=== PATIENT | male | born 1945 | race Caucasian/White ===

== ENCOUNTER 2018-12-11 07:35 | Inpatient (IN) | payer MEDICARE ==
[~2018-12-11] VITALS: Ht 175.3 cm; Wt 58.1 kg
[~2018-12-11 07:35] MED LIST: ALBIPROI; ALBU.083IS IH; ALBU90OI; ALBU90OI INH; ALBUIS; AMMO140TC TOP; ASPI325; ASPI325 PO; ASPI81CH PO; ATOR10; ATOR40TA PO; AZIT500 PO; Acidophilus La100 GM PO; BENZ100A; BUDE200IP IH; Budesonide0.5 MG/2 M INH; CODLIVC PO; Cardizem CD 24240 MG PO; DIAZ5 PO; DIGO.125 PO; DILT120ERA PO; DOXY100 PO; ERGO400 PO; FOLI1 PO; FORM12IH IH; GUAI600T33 PO; HYDACE5 PO; IPRAIS NEB; IPRAOI INH; LEVFLO500 PO; LORA.5 PO; LORA10 PO; METO25ER PO; METO50ER PO; MOME220I IH; MOMENI; Multiple Vitam1 EAC1 PO; NIAC250ER PO; NIAC500; NIAC500 PO; PRED10; PRED10 PO; PRED20 PO; PYRI100 PO; ROSU10TA PO; TAMS.4ER; TAMS.4ER PO; TERA5 PO; TIOT18; TIOT18 IH; UBID100 PO; Ventolin Soln3 ML INH; Vitamin C100 M1 PO; [UNRECOGNIZED DRUG - REMARK]
[2018-12-11 08:09] LABS: BASOPHILS ABSOLUTE AUTO 0.01 K/mm3 (0.00-0.23); BASOPHILS PERCENT AUTO 0 % (0-2); EOSINOPHILS ABSOLUTE AUTO 0.02 K/mm3 (0.00-0.68); EOSINOPHILS PERCENT AUTO 0 % (0-6); Hematocrit 40.6 % (37.0-53.0); Hemoglobin 13.5 g/dL (13.5-17.5); IMMATURE GRAN ABSOLUTE AUTO 0.05 K/mm3 (0.00-0.10); IMMATURE GRAN PERCENT AUTO 0 % (0-1); LYMPHOCYTES ABSOLUTE AUTO 1.76 K/mm3 (0.84-5.20); LYMPHOCYTES PERCENT AUTO 15 % (21-46); MONOCYTES ABSOLUTE AUTO 0.89 K/mm3 (0.16-1.47); MONOCYTES PERCENT AUTO 7 % (4-13); Mean Corpuscular HGB 33.1 pg (26.0-34.0); Mean Corpuscular HGB Conc 33.3 g/dL (31.5-36.5); Mean Corpuscular Volume 100 fL (80-100); NEUTROPHILS ABSOLUTE AUTO 9.37 K/mm3 (1.96-9.15); NEUTROPHILS PERCENT AUTO 77 % (41-73); Platelet Count 234 K/mm3 (150-400); RDW Standard Deviation 48.1 fL (35.1-46.3); Red Blood Cell Count 4.08 M/mm3 (4.30-5.90)
[2018-12-11 08:09] LABS: PCO2 Arterial 47.2 mmHg (35-45); PO2 Arterial 67.4 mmHg (80-100); pH Blood Arterial 7.46 (7.35-7.45)
[2018-12-11 08:33] LABS: Alanine Aminotransfer (ALT/SGP 32 U/L (12-78); Albumin, Blood 3.3 g/dL (3.4-5.0); Alk Phos 50 U/L (50-136); Anion Gap 6 mmol/L (6-16); Aspartate Aminotrans (AST/SGOT 33 U/L (12-37); Bilirubin, Total 0.4 mg/dL (0.1-1.0); Blood Urea Nitrogen 14 mg/dL (8-24); Bun/Creatinine Ratio 24.1 (12.0-20.0); CO2, Blood 32 mmol/L (21-32); Calcium, Blood 8.6 mg/dL (8.5-10.1); Chloride, Blood 97 mmol/L (98-108); Creatinine, Blood 0.58 mg/dL (0.60-1.20); Globulin, Blood 3.3 g/dL (2.2-4.0); Glomerular Filtration Rate >60 (60-); Glucose, Blood 153 mg/dL (70-99); Potassium, Blood 3.7 mmol/L (3.5-5.5); Sodium, Blood 135 mmol/L (136-145); Total Protein, Blood 6.6 g/dL (6.4-8.2); Troponin I <0.015 ng/mL (0.000-0.040)
[2018-12-11] MEDS ORDERED: ALBU3IS (09:04)
[2018-12-11 09:09] LABS: Influenza A Negative (NEGATIVE); Influenza B Negative (NEGATIVE)
[2018-12-11] MEDS ORDERED: LISI20 PO (09:26)
[2018-12-11] MEDS ORDERED: PRED5 (09:26)
[2018-12-11] MEDS ORDERED: GUAI600T33 PO (09:26)
[2018-12-11] MEDS ORDERED: ASCO500 PO (09:33)
[2018-12-11] MEDS ORDERED: Cod Liver Oil1 EAC2 PO (09:33)
[2018-12-11] MEDS ORDERED: CHOL10002 PO (09:33)
[2018-12-11] MEDS ORDERED: ASPI81CH PO (09:33)
[2018-12-11] MEDS ORDERED: UBID10 PO (09:34)
[2018-12-11] MEDS ORDERED: PYRI100 PO (09:35)
[2018-12-11] MEDS ORDERED: Acidophilus La100 GM (09:35)
[2018-12-11] MEDS ORDERED: FOLI400 PO (09:35)
[2018-12-11] MEDS ORDERED: Hair, Skin & N1 EACH PO (09:35)
--- NOTE | 2018-12-11 18:47 | NUR ---
END OF SHIFT; PT ARRIVED TO PCU LATE THIS AFTERNOON FROM ER. HE IS AO X 4. PT ON 2 LITERS O2 ON ARRIVAL TO PCU. LUNGS ARE COARSE THROUGHOUT. EXPIRATORY AND INSPIRATORY WHEEZES ARE NOTED. PT HAS BIPAP IN ROOM IF NEEDED. HE APPEARS VERY SHAKY AND HAS TROUBLE HOLDING CUP OF WATER. PER PATEINT HE IS SINGLE AND LIVES ALONE. SKIIN IS PINK DRY AND INTACT. HE HAS SEVERE DYSPNEA WITH MINIMAL EXERTION. PURSED LIP BREATHING IS NOTED. WILL CONTINUE TO MONITOR THIS PATIENT UNTIL REPORT AND HAND OFF TO NOC SHIFT RN.
--- NOTE | 2018-12-12 06:34 | NUR ---
SHIFT SUMMARY PT RESTING IN ROOM COMFORTABLY. PT HAD NO ACUTE CHANGES IN STATUS T/O SHIFT. PT SLEPT WELL AND HAD NO COMPLAINTS OF PAIN. SOME DYSPNEA W/ MOVEMENT TO BSC. PT ABLE TO TOLERATE MOVE W/ SBA. RESP EVEN UNLABORED ON 2L O2 VIA NC SATS >90%. PT DID NOT NEED CPAP DURING NIGHT. CALL LIGHT IN REACH. CALLS APPROPRIATLY
--- NOTE | 2018-12-12 19:24 | NUR ---
END OF SHIFT SUMMARY; NO ACUTE CHANGES IN CONDITION NOTED IN PATIENT CONDITION TODAY. PT RESTED COMFORTABLY IN BED MOST OF DAY. CALLING FOR BREATHING TREATMENTS NECESSARY. PT IS PROVIDED WITH INCENTIVE SPIROMETER BY RT.
--- NOTE | 2018-12-13 06:29 | NUR ---
SHIFT SUMMARY- PT HAS REMAINED AOX4 THROUGHOUT SHIFT. VSS. PLEASANT AND COOPERATIVE WITH CARE. LUNG SOUNDS HAVE REMAINED DIMINISHED AND TIGHT THROUGHOUT SHIFT. PT WITH WHEEZY PRODUCTIVE COUGH OF THICK, YELLOW SPUTUM. HEART RHYTHM CONTINUES TO CONVERT BETWEEN ATRIAL FIBRILLATION AND NORMAL SINUS RHYTHM- PT REPORTS THAT THIS IS NORMAL FOR HIM, RATE HAS BEEN CONTROLLED UNLESS PT IS COUGHING. O2 SATS HAVE REMAINED >90% ON 3L VIA NASAL CANNULA THROUGHOUT THE NIGHT. PT HAS REMAINED ON BEDREST WITH BSC USE THROUGHOUT SHIFT, AMBULATES WITH STANDBY ASSIST AND MINIMAL DIFFICULTY. PT REQUIRES ENCOURAGEMENT TO UTILIZE PURSED LIP BREATHING TECHNIQUES WHEN FEELING DYSPNEIC. NO OTHER CHANGES FROM INITIAL ASSESSMENT. WILL CONTINUE TO MONITOR AND REPORT TO ONCOMING SHIFT RN. BED IN LOW POSITION, CALL LIGHT IN REACH.
--- NOTE | 2018-12-13 16:56 | NUR ---
SHIFT SUMMARY PT RESTING IN BED THROUGHOUT THE DAY. VSS. ALERT AND ORIENTED X3. C/O NECK PAIN 12/26 THIS AFTERNOON, MEDICATED WITH PRN PAIN MEDS. LUNG SOUNDS TIGHT THROUGHOUT. PT FLIPPING BETWEEN AFIB AND NSR RATE 70s-130s. UP TO BEDSIDE COMMODE WITH 1 PERSON ASSIST. NON PRODUCTIVE COUGH, BUT WHEN HE COUGHS HIS HEART RATE ELEVATES AND HE BECOMES MORE ANXIOUS. VOIDING SMALL AMOUNTS OF CLEAR YELLOW URINE FREQUENTLY. WILL CONTINUE TO MONITOR.
--- NOTE | 2018-12-14 06:02 | NUR ---
SHIFT SUMMARY- PT HAS REMAINED AOX4 THROUGHOUT SHIFT. VSS. COOPERATIVE WITH CARE. LUNG SOUNDS HAVE REMAINED TIGHT THROUGHOUT THE NIGHT, BUT HAVE MORE AIR EXCHANGE IS HEARD FROM PREVIOUS DAY- NO AUDIBLE WHEEZES HEARD. O2 SATS HAVE REMAINED >90% ON 2L VIA NASAL CANNULA, PT REPORTS THAT WORK OF BREATHING HAS DECREASED UNLESS HE IS AMBULATING. PT CONTINUES TO COUGH SMALL AMOUNTS OF THICK, YELLOW SPUTUM- PT CONTINUES TO FEEL INCREASINGLY ANXIOUS WITH COUGHING EPISODES. AMBULATES WITH ONE PERSON ASSIST TO BEDSIDE COMMODE AND USES URINAL AT BEDSIDE INDEPENDENTLY. NO OTHER CHANGES FROM INITIAL ASSESSMENT. WILL CONTINUE TO MONITOR AND REPORT TO ONCOMING SHIFT RN. BED IN LOW POSITION, CALL LIGHT IN REACH.
--- NOTE | 2018-12-14 16:04 | NUR ---
SHIFT SUMMARY PT RESTING IN BED THROUGHOUT THE DAY. VSS. ALERT AND ORIENTED X3. LUNG SOUNDS EXPIRATORY WHEEZES / COARSE THROUGHOUT, DIMINISHED BASES. LUNGS MOVING MORE AIR TODAY THAN YESTERDAY. NSR RATE 79 PER TELE. DENIES PAIN THROUGHOUT THE DAY. PT STABLE TO TRANSFER TO MEDICAL FLOOR. REPORT CALLED TO [place] MOHR ON MEDICAL FLOOR. PT TRANSFERED VIA WHEELCHAIR TO MEDICAL FLOOR WITH BELONGINGS.
--- NOTE | 2018-12-14 16:58 | NUR ---
RECEIVED FROM [facility] BY W/C AT 1625. HE IS SOB BUT TRANSFERRED HIMSELF FROM THE CHAIR TO THE BED. O2 3L FOR TRANSPORT. NOW IS DOWN TO 2L. WILL RESUME CONTINUOUS BIOX. HIS BREATHING SETTLED DOWN AND HE IS COMFORTABLE IN BED WITH THE TV ON. SPUTUM SAMPLE WAS SENT EARLIER TODAY.
--- NOTE | 2018-12-15 05:10 | NUR ---
SHIFT SUMMARY THE PATIENT PRESENTED THIS SHIFT WITH VERY COARSE, WHEEZEY LUNG SOUNDS, A&O X4 AND VITALS WNL. THE PATIENT HAS HAD SEVERAL BREATHING TREATMENTS THIS SHIFT. THE PATIENT REQUESTED A SOFTER BED AND A FOAM MATTRESS PAD WAS PROVIDED FOR HIM. THE PATIENT SLEPT OFF AND ON DURNING THE SHIFT. THE PATIENT IS SLEEPING AT THIS TIME, WILLCONTINUE TO MONITOR.
--- NOTE | 2018-12-15 18:51 | NUR ---
SHIFT SUMMARY PT USING URINAL WITH NO PROBLEM. REPORTS RESP MUCH IMPROVED. CONTINUES TO COUGH UP SPUTUM. QUIET IN ROOM THROUGH DAY WATCHING TV.
--- NOTE | 2018-12-16 03:59 | NUR ---
SHIFT SUMMARY PT HAS SLEPT OFF AND ON THROUGHOUT THE NIGHT. PT HAD NO COMPLAINTS OR ACUTE ISSUES NOTED. PT TX BY RT PER EMAR WITH GOOD EFFECT. PT CONTINUES TO COUGH WITH PRODUCTION. PT CURRENTLY WATCHING TV QUIETLY AND BREATHING EASY. CALL LIGHT IN REACH.
[2018-12-16] MEDS ORDERED: ALBU3IS INH (13:14)
[2018-12-16] MEDS ORDERED: PRED10 (13:17)
[2018-12-16] MEDS ORDERED: SACC250C PO (13:17)
[2018-12-16] MEDS ORDERED: LEVO750 PO (13:17)
[2018-12-16] MEDS ORDERED: DILT30 PO (13:19)
--- NOTE | 2018-12-16 15:30 | NUR ---
DISCHARGE INSTRUCTIONS COMPLETED AND DISCUSSED WITH PT EXPRESSING UNDERSTANDING. COUSIN HERE TO PICK PT UP. TO [facility] VIA W/C.
--- NOTE | 2018-12-16 18:04 | NUR ---
Mr. Pratt tells me he really doesn't feel much better and appeared to be having trouble talking and breathing. This bothers him. He is not buddhism, but appeared to enjoy emotional affirmation. I encouraged him to express his concerns to his physician. Mr. Pratt said he did not feel well enough to go home. Informed RN.
== END 2018-12-16 15:31 | disposition home or self-care (01) | DRG 189 ==
LOC: ER 07:35 → PCU 10:07 → MEDS 12-14 16:45 → ENPENDDIS 12-16 10:30 → MEDS 12-16 15:31
PROVIDERS: Physician Assistant; ADMIT Hospitalist
DX: J96.21 Acute and chronic respiratory failure with hypoxia (principal); J44.1 Chronic obstructive pulmonary disease with (acute) exacerbation; I10 Essential (primary) hypertension; I48.91 Unspecified atrial fibrillation; E78.5 Hyperlipidemia, unspecified; N40.0 Benign prostatic hyperplasia without lower urinary tract symptoms; Z88.8 Allergy status to other drugs, medicaments and biological substances; Z88.5 Allergy status to narcotic agent; Z91.018 Allergy to other foods; Z99.81 Dependence on supplemental oxygen; Z79.82 Long term (current) use of aspirin; Z79.899 Other long term (current) drug therapy; Z87.891 Personal history of nicotine dependence
CPT/HCPCS: 36600; 71046; 80053; 82803; 83880; 84484; 85025; 87070; 87077; 87186; 87205; 87804; 93005; 93010; 94640; 94660; 94760; 94762; 96374; 99285-25; J1650; J2930

== ENCOUNTER 2018-12-17 08:44 | Inpatient (IN) | payer MEDICARE ==
[~2018-12-17] VITALS: Ht 167.6 cm; Wt 70.3 kg
[~2018-12-17 08:44] MED LIST changes: +ALBU3IS; +ALBU3IS INH; +ASCO500 PO; +Acidophilus La100 GM; +CHOL10002 PO; +Cod Liver Oil1 EAC2 PO; +DILT30 PO; +FOLI400 PO; +Hair, Skin & N1 EACH PO; +LEVO750 PO; +LISI20 PO; +PRED5; +SACC250C PO; +UBID10 PO
[2018-12-17 09:18] LABS: BASOPHILS ABSOLUTE AUTO 0.02 K/mm3 (0.00-0.23); BASOPHILS PERCENT AUTO 0 % (0-2); EOSINOPHILS ABSOLUTE AUTO 0.02 K/mm3 (0.00-0.68); EOSINOPHILS PERCENT AUTO 0 % (0-6); Hematocrit 45.9 % (37.0-53.0); Hemoglobin 15.6 g/dL (13.5-17.5); IMMATURE GRAN ABSOLUTE AUTO 0.15 K/mm3 (0.00-0.10); IMMATURE GRAN PERCENT AUTO 1 % (0-1); LYMPHOCYTES ABSOLUTE AUTO 1.79 K/mm3 (0.84-5.20); LYMPHOCYTES PERCENT AUTO 8 % (21-46); MONOCYTES ABSOLUTE AUTO 1.93 K/mm3 (0.16-1.47); MONOCYTES PERCENT AUTO 9 % (4-13); Mean Corpuscular HGB 32.6 pg (26.0-34.0); Mean Platelet Volume 9.2 fL (9.1-12.4); NEUTROPHILS ABSOLUTE AUTO 17.72 K/mm3 (1.96-9.15); NEUTROPHILS PERCENT AUTO 82 % (41-73); Platelet Count 317 K/mm3 (150-400); RDW Coefficient Variation 12.3 % (11.7-14.2); RDW Standard Deviation 44.3 fL (35.1-46.3); Red Blood Cell Count 4.78 M/mm3 (4.30-5.90); White Blood Cell Count 21.63 K/mm3 (4.00-11.30)
[2018-12-17 09:23] LABS: Mean Corpuscular Volume 96 fL (80-100)
[2018-12-17 09:58] LABS: Alanine Aminotransfer (ALT/SGP 56 U/L (12-78); Albumin/Globulin Ratio 0.9 (0.8-1.8); Alk Phos 62 U/L (50-136); Anion Gap 6 mmol/L (6-16); Aspartate Aminotrans (AST/SGOT 43 U/L (12-37); Bilirubin, Total 0.5 mg/dL (0.1-1.0); Blood Urea Nitrogen 31 mg/dL (8-24); Bun/Creatinine Ratio 50.7 (12.0-20.0); CO2, Blood 35 mmol/L (21-32); Calcium, Blood 8.6 mg/dL (8.5-10.1); Chloride, Blood 93 mmol/L (98-108); Creatinine, Blood 0.61 mg/dL (0.60-1.20); Globulin, Blood 3.3 g/dL (2.2-4.0); Glomerular Filtration Rate >60 (60-); Glucose, Blood 154 mg/dL (70-99); Potassium, Blood 4.5 mmol/L (3.5-5.5); Sodium, Blood 134 mmol/L (136-145); Total Protein, Blood 6.3 g/dL (6.4-8.2); Troponin I 0.033 ng/mL (0.000-0.040)
[2018-12-17 10:05] LABS: Digoxin (Lanoxin) 0.47 ug/mL (0.80-2.00)
--- NOTE | 2018-12-17 17:39 | NUR ---
SHIFT SUMMARY. 1508 PT ADMITTED TO MEDICAL FLOOR VIA [facility]. A&OX3, PT IS AWARE OF LIMITATIONS AND CALLS APPROPRIATELY. PT ON 3L O2 NC, LUNGS WITH COARSE CRACKLES THROUGHOUT, REPORTS DIFFICULTY COUGHING UP SPUTUM, DYSPNEA WITH EXERTION INCLUDING CHANGING POSITIONS IN BED. PT DENIES PAIN, N/V, GOOD APPETITE. GLUTEAL CLEFT MILDLY RED, CREAM APPLIED, BRIEF CHANGED. NO NEW CHANGS.
--- NOTE | 2018-12-18 04:26 | NUR ---
DIRECTOR INDUSTRIAL SUMMARY PT AAOX4 AND PLEASANT. 1 PERSN ASSIST TO THE BSC. PT HAS BEEN ON HIS BASELINE 2L O2 VIA NC THROUGH THE NIGHT WITH SCHEDULED BREATHING TREATMENTS PER RT. LUNGS STILL COARSE T/O. PT COMPLAINS OF CONSTANTLY HAVING TO URINATE EVERY 45 MINUTES OR SO USING THE URINAL. PT HAS HX OF BPH AND TAKES FLOMAX, HOWEVER PT STATES THIS IS A LITTLE EXCESSIVE COMPARED TO HIS BASELINE. PT WAS BECOMING ANXIOUS REGARDING THIS AND WAS COMPLAINING THAT HE WAS UNABLE TO SLEEP BECAUSE HE CONSTANTLY HAD TO USE THE URINAL. PLACED CONDOM CATH TO HELP PT RELAX AND GET SLEEP. CATH DRAINING CLEAR YELLOW URINE. NO OTHER COMPLAINTS FROM PT. VSS, WILL CONTINUE TO MONITOR.
--- NOTE | 2018-12-18 18:38 | NUR ---
SHIFT SUMMARY PATIENT IS PLEASANT. COMPLAINING OF ABDOMINAL PAIN. NO ACUTE CONCERNS BESIDES THE ABDOMINAL PAIN. WILL ASSESS FOR ANY CHANGES. TYLENOL DID NOT CHANGE THE PAIN.
[2018-12-19 04:56] LABS: Hematocrit 45.7 % (37.0-53.0); Hemoglobin 15.8 g/dL (13.5-17.5); Mean Corpuscular HGB 32.4 pg (26.0-34.0); Mean Corpuscular HGB Conc 34.6 g/dL (31.5-36.5); Mean Corpuscular Volume 94 fL (80-100); Mean Platelet Volume 9.5 fL (9.1-12.4); Platelet Count 392 K/mm3 (150-400); RDW Coefficient Variation 12.2 % (11.7-14.2); RDW Standard Deviation 42.3 fL (35.1-46.3); Red Blood Cell Count 4.88 M/mm3 (4.30-5.90); White Blood Cell Count 32.23 K/mm3 (4.00-11.30)
[2018-12-19 05:14] LABS: Anion Gap 7 mmol/L (6-16); Blood Urea Nitrogen 42 mg/dL (8-24); CO2, Blood 32 mmol/L (21-32); Calcium, Blood 8.7 mg/dL (8.5-10.1); Chloride, Blood 88 mmol/L (98-108); Glomerular Filtration Rate >60 (60-); Glucose, Blood 126 mg/dL (70-99); Potassium, Blood 4.5 mmol/L (3.5-5.5); Sodium, Blood 127 mmol/L (136-145)
--- NOTE | 2018-12-19 07:28 | NUR ---
*SHIFT SUMMARY* AT BEGINING OF SHIFT PATIENT SITTING IN BED, COMPLAINING OF PAIN IN LOWER ABDOMEN. PATIENT WEARING 2L NASAL CANNULA, RESPIRATIONS EQUAL AND SLIGHTLY LABORED AT 26. PATIENT MEDICATED FOR PAIN ORDERED. PATIENT SLEPT FOR A COUPLE OF HOURS. VITALS RECHECKED AT 0229 AND RESPIRATIONS WERE 16 AND UNLABORED.PATIENT BEGAN HAVING PAIN AGAIN IN LOWER ABDOMEN, 10 OUT OF 10 PAIN. PATIENT HAD LABORED BREATHING, DIAPHORETIC. PATIENT WAS MEDICATED FOR PAIN AGAIN AT 0349. AFTER MEDICATING IT WAS NOTED THAT THE CONDOM CATH THAT HAD BEEN PREVIOUSLY APPLIED WAS NO LONGER ATTACHED TO PATIENT'S PENIS. PATIENT'S BLADDER WAS VERY FIRM AND DISTENDED. BLADDER SCAN DONE AND READ >999ML. HOSPITALIST CALLED AND RECEIVED AN ORDER FOR HANSEN CATH AND BLADDER SCAN. CATHETERIZATION WAS ATTEMPTED SEVERAL TIMES AND UNSUCCESSFUL FOR CATHETER SIZES WERE TOO BIG. HOSPITALIST NOTIFIED AND OKAY'D TO TRY USING A 10F NG TUBE. SUCCESSFUL ON FIRST ATTEMPT. PATIENT HAD 1175ML DRAIN, TUBE REMOVED. BLADDER SCAN DONE AFTER DRAINING BLADDER AND 220ML STILL IN BLADDER. HOSPITALIST CALLED AND INFORMED OF RESULTS. NEW ORDER FOR BLADDER SCAN Q6HR. DAYSHIFT NURSE NOTIFIED. CHARGE NURSE ASSISTED WITH CATHETER PROCEDURE. PATIENT REPORTS FEELING LESS PAIN IN LOWER BLADDER AFTER HAVING IT DRAINED. ABDOMEN IS LESS FIRM AND DISTENDED. CALL LIGHT WITHIN REACH, BED LOWERED AND LOCKED.
[2018-12-19 09:30] LABS: Hematocrit 45.9 % (37.0-53.0); Hemoglobin 15.8 g/dL (13.5-17.5); Mean Corpuscular HGB 32.8 pg (26.0-34.0); Mean Corpuscular HGB Conc 34.4 g/dL (31.5-36.5); Mean Corpuscular Volume 95 fL (80-100); Mean Platelet Volume 9.8 fL (9.1-12.4); Platelet Count 398 K/mm3 (150-400); RDW Coefficient Variation 12.2 % (11.7-14.2); Red Blood Cell Count 4.81 M/mm3 (4.30-5.90); White Blood Cell Count 31.94 K/mm3 (4.00-11.30)
[2018-12-19 10:02] LABS: BASOPHILS PERCENT MAN 0 % (0-2); EOSINOPHILS PERCENT MAN 0 % (0-6); LYMPHOCYTES ABSOLUTE MAN 1.59 K/mm3 (0.84-5.20); LYMPHOCYTES PERCENT MAN 5 % (21-46); MONOCYTES ABSOLUTE MAN 1.59 K/mm3 (0.16-1.47); MONOCYTES PERCENT MAN 5 % (4-13); NEUTROPHILS ABSOLUTE MAN 28.74 K/mm3 (1.96-9.15); SEG NEUTROPHILS PERCENT MAN 90 % (41-73); TOTAL CELLS COUNTED 100
--- NOTE | 2018-12-19 14:09 | NUR ---
HAVE SPOKEN WITH DR. JOHNSON ABOUT PATIENTS CURRENT POSITION. PATIENT HAS BEEN BLADDER SCANNED AT 0900. BLADDER SCAN CAME BACK AT 449. SPOKE WITH DR. JOHNSON WHO REQUESTED WE PLACE A HANSEN CATHETER IN THE PATIENT. I HAVE EXPRESSED THE CONCERN WITH DR. JOHNSON THAT THEY HAD TRIED FOR AN HOUR PRIOR TO MY COMING ON SHIFT. WHEN A STRAIGHT CATH WAS PLACED BY THE CHARGE NURSE FOR NIGHTSHIFT THEY DRAINED 1175 FROM THE PATIENTS BLADDER WITH A RETENTION OF 200 MLS AT 0500. PATIENT STATES THAT HE HAS ABDOMNAL PAIN BUT NO URGE TO VOID. PATIENT WAS BLADDER SCANNED AT 1030 BY ULTRASOUND DURING A RENAL ULTRASOUND THIS MORNING AND PATIENT HAD 330 IN THE BLADDER AND 78 AROUND THE PROSTATE PER JULIEN CAMPBELL NEON MOLDER. PATIENT HAS DENIED THE URGE TO VOID, OR THE FEELING OF FULLNESS IN THE BLADDER. PATIENT HAD HIS BREAKFAST AND LUNCH, HAS NOT TAKEN IN MANY FLUIDS TODAY. HIS LUNGS SOUND WETTER AND I HAVE EXPRESSED THIS CONCERN WITH DR. JOHNSON WELL. NT SUCTION HAS BEEN ORDERED PER RT, AND PATIENT HAS SUCTION AT BEDSIDE HE NEEDS IT AND IS ABLE TO COUGH STUFF UP. PATIENT HAD CHARGE NURSE WILLIAM BERMEO AND [place] AT BEDSIDE TRYING TO PLACE A CATHETER 3 DIFFERENT SIZES. THIS WAS UNABLE TO ADVANCE PAST THE TIP OF THE PENIS. UPON FURTHER ASSESSMENT PATIENT'S PENILE TIP LOOKS MILDLY DISCOLORED. NOTIFIED DR. JOHNSON OF THIS CONCERN. PATIENT WAS BLADDER SCANNED AT 1130 AND HIS BLADDER SCAN NOTED 680 IN THE BLADDER. PATIENT STILL DENIED THE URGE OF URINATION OR THE ABILITY TO VOID. DR. JOHNSON REQUESTED THAT WE TRY ONE MORE TIME TO PLACE A CATHETER. A SPECIAL CATHETER FULL SILICONE WAS REQUESTED TO TRY TO PLACE PATIENT HAS HAD DIFFICULTY WITH THE MORE "FLIMSY" CATHETER PLACEMENTS. RYANN BRADFORD AND MYSELF TRIED TO PLACE THIS MORE FIRM CATHETER AND IT DID NOT ADVANCE. ONCE AGAIN I EXPRESSED MY CONCERN FOR THE COLORATION OF THE TIP OF THE PENIS TO DR. JOHNSON AND THAT HIS CATHETER IS NOT ADVANCING. WAS TOLD THAT WE WERE GOING TO CALL UROLOGY IN [place] FOR FURTHER CONCERNS AT THIS TIME. I AM AWAITING FURTHER INFORMATION FROM DR. JOHNSON AND UROLOGY.
[2018-12-19 16:36] LABS: Anion Gap 6 mmol/L (6-16); Blood Urea Nitrogen 39 mg/dL (8-24); Bun/Creatinine Ratio 58.9 (12.0-20.0); CO2, Blood 35 mmol/L (21-32); Calcium, Blood 8.4 mg/dL (8.5-10.1); Chloride, Blood 89 mmol/L (98-108); Creatinine, Blood 0.66 mg/dL (0.60-1.20); Glomerular Filtration Rate >60 (60-); Glucose, Blood 141 mg/dL (70-99); Potassium, Blood 5.4 mmol/L (3.5-5.5); Sodium, Blood 130 mmol/L (136-145)
--- NOTE | 2018-12-19 16:42 | NUR ---
PATIENT HAD A RAPID RESPONSE CALLED AROUND 1445 THIS AFTERNOON 12/19/18. PATIENT RESPIRATORY RATE HAD GONE FROM 16 TO 36 IN TWO HOURS. THE PATIENT'S BREATHING WAS VERY LABORED AND HIS OXYGENATION WAS FINE. PATIENT WAS FLUSHED, AND HIS BREATHING WAS VERY LABORED. RAPID WAS CALLED BECAUSE THE PATIENT COULD NOT CALM HIS BREATHING, PATIENT WAS PLACED ON BIPAP WITH RESPIRATORY. PATIENT'S HEART RATE HAD GONE FROM 80 TO 134 WHEN HIS RESPIRATION RATE HAD INCREASED. DR. JOHNSON ORDERED ONE TIME DOSE OF SOLU-MEDROL 60MG, AND Q4 FENTANYL 12.5 MCG FOR PAIN OR AIR HUNGER. PATIENT WAS PLACED ON BIPAP PROTOCOL AND PLACED ON THE BIPAP TO HELP EASE HIS WORK OF BREATHING. PATIENT ALSO HAD STAT CHEST XRAY AND LABS DRAWN. XRAY HAS BEEN SEEN BY THE DOC AND PATIENT TO BE TRANSFERRED UP TO [facility] TO DR. MONTEZ.
--- NOTE | 2018-12-19 18:42 | NUR ---
DISCHARGE SUMMARY PATIENT PLEASANT WITH TRANSPORTATION. HE IS ON 4L WITH THE 22G IN THE R FOREARM. NO ACUTE CONCERNS FROM THE PATIENT. REPORT WAS CALLED TO KEITH MOHR AT [facility].
== END 2018-12-19 18:40 | disposition short-term general hospital (02) | DRG 177 ==
LOC: ER 08:44 → MEDS 11:34 → ERHOLD 11:34 → MEDS 15:08
PROVIDERS: Emergency Medicine; ADMIT Internal Medicine
PROC: 5A09357 Assistance with Respiratory Ventilation, Less than 24 Consecutive Hours, Continuous Positive Airway Pressure (ICD-10-PCS; principal; 2018-12-18)
DX: J15.1 Pneumonia due to Pseudomonas (principal); J96.21 Acute and chronic respiratory failure with hypoxia; J44.1 Chronic obstructive pulmonary disease with (acute) exacerbation; J44.0 Chronic obstructive pulmonary disease with (acute) lower respiratory infection; E87.1 Hypo-osmolality and hyponatremia; I10 Essential (primary) hypertension; R33.9 Retention of urine, unspecified; Z87.891 Personal history of nicotine dependence; N13.9 Obstructive and reflux uropathy, unspecified; Z99.81 Dependence on supplemental oxygen; I48.2 Chronic atrial fibrillation; N40.1 Benign prostatic hyperplasia with lower urinary tract symptoms; E78.5 Hyperlipidemia, unspecified
CPT/HCPCS: 31720; 36415; 71045; 71046; 71250; 76770; 80048; 80053; 80162; 83880; 84484; 85007; 85025; 85027; 93005; 93010; 94640; 94660; 94667; 94760; 94762; 96365; 96375; 97162; 99285-25; J0713; J1885; J1956; J2930; J3010; J7030

== ENCOUNTER 2019-01-01 11:13 | Inpatient (IN) | payer MEDICARE ==
[~2019-01-01] VITALS: Ht 172.7 cm; Wt 65.2 kg
[2019-01-01 11:50] LABS: BASOPHILS ABSOLUTE AUTO 0.01 K/mm3 (0.00-0.23); BASOPHILS PERCENT AUTO 0 % (0-2); EOSINOPHILS ABSOLUTE AUTO 0.02 K/mm3 (0.00-0.68); EOSINOPHILS PERCENT AUTO 0 % (0-6); Hematocrit 32.3 % (37.0-53.0); Hemoglobin 10.6 g/dL (13.5-17.5); IMMATURE GRAN PERCENT AUTO 1 % (0-1); LYMPHOCYTES PERCENT AUTO 3 % (21-46); MONOCYTES ABSOLUTE AUTO 0.62 K/mm3 (0.16-1.47); MONOCYTES PERCENT AUTO 4 % (4-13); Mean Corpuscular HGB Conc 32.8 g/dL (31.5-36.5); Mean Platelet Volume 9.6 fL (9.1-12.4); NEUTROPHILS ABSOLUTE AUTO 14.46 K/mm3 (1.96-9.15); NEUTROPHILS PERCENT AUTO 93 % (41-73); Platelet Count 192 K/mm3 (150-400); RDW Coefficient Variation 12.1 % (11.7-14.2); RDW Standard Deviation 43.8 fL (35.1-46.3); Red Blood Cell Count 3.31 M/mm3 (4.30-5.90); White Blood Cell Count 15.61 K/mm3 (4.00-11.30)
[2019-01-01 11:51] LABS: Mean Corpuscular Volume 98 fL (80-100)
[2019-01-01 11:55] LABS: PCO2 Arterial 50.2 mmHg (35-45); PO2 Arterial 88.7 mmHg (80-100)
[2019-01-01] MEDS ORDERED: BENZ100A PO (12:18)
[2019-01-01] MEDS ORDERED: [UNRECOGNIZED DRUG - OTHER] TOP (12:19)
[2019-01-01] MEDS ORDERED: ALBU90OI61 INH (12:19)
[2019-01-01] MEDS ORDERED: NIAC500 PO (12:20)
[2019-01-01] MEDS ORDERED: Cod Liver Oil1 EAC2 PO (12:21)
[2019-01-01] MEDS ORDERED: GUAIFENESIN ER600 MG PO (12:21)
[2019-01-01] MEDS ORDERED: Acidophilus1 EAC1 PO (12:22)
[2019-01-01] MEDS ORDERED: AZIT250 PO (12:23)
[2019-01-01 12:24] LABS: Alanine Aminotransfer (ALT/SGP 63 U/L (12-78); Albumin/Globulin Ratio 0.7 (0.8-1.8); Alk Phos 50 U/L (50-136); Anion Gap 3 mmol/L (6-16); Aspartate Aminotrans (AST/SGOT 29 U/L (12-37); Bilirubin, Total 0.7 mg/dL (0.1-1.0); Blood Urea Nitrogen 33 mg/dL (8-24); Bun/Creatinine Ratio 82.9 (12.0-20.0); CO2, Blood 37 mmol/L (21-32); Calcium, Blood 8.1 mg/dL (8.5-10.1); Chloride, Blood 97 mmol/L (98-108); Globulin, Blood 2.8 g/dL (2.2-4.0); Glomerular Filtration Rate >60 (60-); Glucose, Blood 119 mg/dL (70-99); Potassium, Blood 4.4 mmol/L (3.5-5.5); Sodium, Blood 137 mmol/L (136-145); Total Protein, Blood 4.8 g/dL (6.4-8.2); Troponin I 0.047 ng/mL (0.000-0.040)
[2019-01-01] MEDS ORDERED: Cardizem LA240 MG PO (12:24)
[2019-01-01] MEDS ORDERED: COENZYME Q-1050 MG PO (12:25)
[2019-01-01] MEDS ORDERED: FOLI1 PO (12:26)
[2019-01-01] MEDS ORDERED: LEVO750 PO (12:27)
[2019-01-01] MEDS ORDERED: Loratadine10 MG PO (12:27)
[2019-01-01] MEDS ORDERED: Hair, Skin & N1 EACH PO (12:27)
[2019-01-01] MEDS ORDERED: PRED20 PO (12:28)
[2019-01-01] MEDS ORDERED: TIOT18 INH (12:29)
[2019-01-01] MEDS ORDERED: PYRI100 PO (12:29)
[2019-01-01 12:41] LABS: Influenza A Negative (NEGATIVE); Influenza B Negative (NEGATIVE)
[2019-01-01 12:52] LABS: Digoxin (Lanoxin) 1.09 ug/mL (0.80-2.00)
--- NOTE | 2019-01-01 16:41 | NUR ---
PT ARRIVAL. PT ARRIVED ON UNIT AT 1443 VIA GURNEY, PT WAS PULLED OVER TO BED BY STAFF. PT IS ON 2L NC WHICH IS HIS HOME DOSE, PT IS USEING ACCESSORY MUSCLES AND RESPIRATION RATE IS 28. TELE WAS PLACED, PT IS NSR W/PACS, PT WAS AFIB IN THE ED AND HAD CONVERTED IN TRANSIT TO UNIT. NO EDEMA NOTED ON ASSESSMENT. PT'S BP IS IMPROVING FROM 88/50 TO 101/48 SINCE FLUID BOLUS OF 1 L OF NS. L/S VERY DIM T/O, COARSE W/WHEEZES. BT PRESENT AND HYPOACTIVE, ABD IS SOFT AND NONTENDER TO PALP. STAGE 1 PRESSURE ULCER IS PRESENT ON ADMIT TO COCCYX AND LEFT MID BACK. MEPILEX IN PLACE. PICTURES IN CHART. CALL LIGHT IN REACH, BED IS LOCKED AND LOW WILL CONTINUE TO MONITOR.
--- NOTE | 2019-01-01 18:11 | NUR ---
SHIFT SUMMARY. NO ACUTE CHANGES NOTED THIS SHIFT. PT'S VS HAVE BEEN STABLE SINCE ADMIT. PT IS CURRENTLY ON 2L NC WHICH IS HIS HOME DOSE WITH SATS >90%. PT'S VOICE IS VERY HOARSE SOUNDING, HE HAS A LOT OF SPUTUM IN HIS AIRWAY, AND SOUNDS GURGLY A TIMES, SPUTUM SAMPLE WAS SENT FOR CULTURE. CALL LIGHT IN REACH, BED IS LOCKED AND LOW WILL CONTINUE TO MONITOR.
[2019-01-01 21:25] LABS: Adenovirus Not Detected (NOT DETECT); Bordetella pertussis Not Detected (NOT DETECT); Chlamydophila pneumoniae Not Detected (NOT DETECT); Coronavirus 229E Not Detected (NOT DETECT); Coronavirus HKU1 Not Detected (NOT DETECT); Coronavirus NL63 Not Detected (NOT DETECT); Coronavirus OC43 Detected (NOT DETECT); Human Metapneumovirus Not Detected (NOT DETECT); Human Rhinovirus/Enterovirus Not Detected (NOT DETECT); Influenza A Not Detected (NOT DETECT); Influenza A/2009-H1 Not Detected (NOT DETECT); Influenza A/H1 Not Detected (NOT DETECT); Influenza A/H3 Not Detected (NOT DETECT); Influenza B Not Detected (NOT DETECT); Mycoplasma pneumoniae Not Detected (NOT DETECT); Parainfluenza Virus 1 Not Detected (NOT DETECT); Parainfluenza Virus 2 Not Detected (NOT DETECT); Parainfluenza Virus 3 Not Detected (NOT DETECT); Parainfluenza Virus 4 Not Detected (NOT DETECT); Respiratory Syncytial Virus Not Detected (NOT DETECT)
--- NOTE | 2019-01-01 22:19 | NUR ---
ASSUMED CARE OF PATIENT AT APPROXIMATELY 1910 FROM ELLEN Francisco RN. PATIENT ALERT AND ORIENTED X4; HOARSE VOICE. PATIENT DENIES PAIN, NUMBNESS, TINGLING, DIZZINESS AND NAUSEA. NSR W/ PAC ON TELE; OXYGEN SATURATION ABOVE 90% ON 3LPM VIA NC (BASELINE IS 2LPM); ACCESSORY MUSCLE USE FOR BREATHING; LABORED; CONGESTED COUGH; CORONAVIRUS. PATIENT REPORTS BREATHING IMPROVES AFTER BREATHING TREATMENT. PATIENT HAS BEEN IN BED SHIFT CHANGE; Q2H TURNS DUE TO PRESSURE ULCERS ON BACK; PHOTOS IN CHART. CHRONIC URINARY CATH IN PLACE; DAYSHIFT RN STATED NOT TO BE REPLACED. IV ABX INFUSING PER ORDER. PATIENT CURRENTLY RESTING IN BED; CALL LIGHT IN REACH; BED IN LOWEST POSISTION; BED ALARM ON; WILL CONTINUE TO MONITOR AND ASSESS UNTIL END OF SHIFT.
[2019-01-02 04:46] LABS: BASOPHILS ABSOLUTE AUTO 0.01 K/mm3 (0.00-0.23); BASOPHILS PERCENT AUTO 0 % (0-2); EOSINOPHILS PERCENT AUTO 0 % (0-6); Hematocrit 28.8 % (37.0-53.0); Hemoglobin 9.5 g/dL (13.5-17.5); IMMATURE GRAN ABSOLUTE AUTO 0.05 K/mm3 (0.00-0.10); IMMATURE GRAN PERCENT AUTO 0 % (0-1); LYMPHOCYTES ABSOLUTE AUTO 0.27 K/mm3 (0.84-5.20); LYMPHOCYTES PERCENT AUTO 2 % (21-46); MONOCYTES ABSOLUTE AUTO 0.15 K/mm3 (0.16-1.47); MONOCYTES PERCENT AUTO 1 % (4-13); Mean Corpuscular HGB 33.3 pg (26.0-34.0); Mean Platelet Volume 9.9 fL (9.1-12.4); NEUTROPHILS ABSOLUTE AUTO 12.79 K/mm3 (1.96-9.15); NEUTROPHILS PERCENT AUTO 96 % (41-73); Platelet Count 194 K/mm3 (150-400); RDW Coefficient Variation 12.2 % (11.7-14.2); RDW Standard Deviation 45.6 fL (35.1-46.3); Red Blood Cell Count 2.85 M/mm3 (4.30-5.90); White Blood Cell Count 13.27 K/mm3 (4.00-11.30)
[2019-01-02 05:04] LABS: Alanine Aminotransfer (ALT/SGP 54 U/L (12-78); Albumin, Blood 1.9 g/dL (3.4-5.0); Albumin/Globulin Ratio 0.8 (0.8-1.8); Alk Phos 45 U/L (50-136); Anion Gap 6 mmol/L (6-16); Aspartate Aminotrans (AST/SGOT 29 U/L (12-37); Bilirubin, Total 0.7 mg/dL (0.1-1.0); Blood Urea Nitrogen 30 mg/dL (8-24); Bun/Creatinine Ratio 74.1 (12.0-20.0); CO2, Blood 34 mmol/L (21-32); Calcium, Blood 7.7 mg/dL (8.5-10.1); Chloride, Blood 101 mmol/L (98-108); Creatinine, Blood 0.41 mg/dL (0.60-1.20); Globulin, Blood 2.5 g/dL (2.2-4.0); Glomerular Filtration Rate >60 (60-); Glucose, Blood 166 mg/dL (70-99); Magnesium, Blood 2.2 mg/dL (1.6-2.4); Potassium, Blood 4.2 mmol/L (3.5-5.5); Sodium, Blood 141 mmol/L (136-145); Total Protein, Blood 4.4 g/dL (6.4-8.2)
[2019-01-02 05:15] LABS: Mean Corpuscular Volume 101 fL (80-100)
--- NOTE | 2019-01-02 06:15 | NUR ---
PATIENT SLEPT ABOUT TEN HOURS LAST NIGHT. REPORTS EATING IS DIFFICULT; REPORTS HE CAN ONLY EAT SMALL AMOUNTS OF FOOD AT A TIME; ABLE TO DRINK ONE FULL ENSURE THIS MORNING; DIETARY CONSULT. VSS. NO ACUTE CHANGES TO REPORT. WILL CONTINUE TO MONITOR AND ASSESS UNTIL END OF SHIFT.
--- NOTE | 2019-01-02 12:00 | NUR ---
REASSESSMENT: PT HAS BEEN RESTING IN BED THROUGHOUT THE MORNING. HIS LUNGS CONTINUE TO BE VERY COARSE AND PT'S BREATHING IS SLIGHTLY LABORED AT REST. HE HAS A COARSE, MOIST SOUNDING COUGH. HIS BP WAS LOW AT LUNCH, BUT MAP WAS 64 AND PT WAS SLEEPING. WILL RECHECK WHEN PT IS MORE AWAKE. OTHERWISE PT HAS HAD NO CHANGES FROM EARLIER ASSESSMENT.
--- NOTE | 2019-01-02 12:45 | NUR ---
SPOKE WITH DR. HURST AFTER SPEAKING WITH RT AND RECEIVED ORDER ALLOWING DEEP SUCTION IF PT IS WILLING. ALSO RECEIVED ORDER FOR SPEECH THERAPY EVAL PT SEEMS TO BE SHOWING SOME SIGNS OF POSSIBLY ASPIRATING SUCH MOIST COUGH AFTER DRINKING AND GURGLY VOICE.
--- NOTE | 2019-01-02 21:19 | NUR ---
ASSUMED CARE OF PATIENT AT APPROXIMATELY 1905 FROM CONSUELO Velazquez RN. PATIENT ALERT AND ORIENTED X4; HOARSE VOICE. PATIENT DENIES PAIN, NUMBNESS, TINGLING, DIZZINESS AND NAUSEA. NSR W/ PAC ON TELE; OXYGEN SATURATION ABOVE 90% ON 2LPM VIA NC (BASELINE IS 2LPM); ACCESSORY MUSCLE USE FOR BREATHING; LABORED; CONGESTED COUGH; CORONAVIRUS. PATIENT REPORTS BREATHING IMPROVES AFTER BREATHING TREATMENT. PATIENT HAS BEEN IN BED SHIFT CHANGE; Q2H TURNS DUE TO PRESSURE ULCERS ON BACK; PHOTOS IN CHART. CHRONIC URINARY CATH IN PLACE; DAYSHIFT RN STATED NOT TO BE REPLACED. PATIENT TAKES PILLS WITH CLEAR ENSURE CHEUNG FLAVOR ONE AT TIME. IV S/L. PATIENT CURRENTLY RESTING IN BED; CALL LIGHT IN REACH; BED IN LOWEST POSISTION; BED ALARM ON; WILL CONTINUE TO MONITOR AND ASSESS UNTIL END OF SHIFT.
--- NOTE | 2019-01-03 06:33 | NUR ---
PATIENT SLEPT ABOUT FOUR HOURS LAST NIGHT. REPORTED HE NEEDED TO HAVE BM; MAX ASSIST TO BEDSIDE COMMODE; OXYGEN INCREASED TO 5LPM VIA NC; MORE DSYPNEIC AND WEAK; PATIENT DID NOT HAVE A BM. PATIENT CONVERTED BACK TO AFIB AROUND 0200; PATIENT HAS HX OF AFIB AND WAS IN AFIB IN ER. WILL CONTINUE TO MONITOR AND ASSESS UNTIL END OF SHIFT.
[2019-01-03 10:17] LABS: PCO2 Arterial 56.9 mmHg (35-45); PO2 Arterial 77.5 mmHg (80-100); pH Blood Arterial 7.33 (7.35-7.45)
--- NOTE | 2019-01-03 10:30 | NUR ---
PT ARRIVAL: PT ARRIVED VIA BED. DECREASED LOC AND UNABLE TO ANSWER QUESTIONS OR RESPONG TO VERBAL STIMULI. RESPONDS TO PAINFUL STIMULI. PT WILL OCCASIONALLY REPOSITION SELF IN BED BUT IS NOT REDIRECTABLE AT THIS TIME. PULLS AT LINES/CORDS. LUNGS ARE VERY DIMINISHED T/O WITH MINIMAL AIR EXCHANGE HEARD BILATERALLY. PT BEING PLACED ON BIPAP PER KAYLA, RT. HR IRREGULAR, ATRIAL FIB-110-120'S. BOLUSING PT WITH NS AT THIS TIME. WILL BE PLACING A PICC LINE FOR CONTINUED HYPOTENSION AND MAY NEED TO START LEVOPHED. ABG DONE AND DR BALDERAS WAS ADDED TO CASE IS AT THE BEDSIDE CONSULTING ON PT. ABD SOFT/ROUND/NON-TENDER TO PALPATION. NO NAUSEA. PT TO REMAIN NPO FOR POSSIBLE EGD H+H HAS SIGNIFICANTLY DROPPED. PT WITH MINMAL DARK, YELLOW URINE IN CATHETER BAG. CATHETER IS A VOLUNTEER SPECIALIST CATHETER PLACED BY UROLOGY FOR RETENTION. PT HAS A PRESSURE ULCER TO COCCYX THAT IS COVERED WITH A FOAM DRSG, C/D/I, AND WHAT APPEARS TO BE A SHEARING INJURY TO MID SPINE, WILL CHANGE DRSG IT IS STARTING TO PEEL.
--- NOTE | 2019-01-03 11:00 | NUR ---
TRANSFER TO ICU Assumed care of pt at 0700. Report recieved from Jocelyn MOHR. Pt on 2 LPM NC which is his baseline O2 use. Shift assessment completed. Around 0845, pt called RN and stated he was having difficulty breathing. Pt yelled "Help!" and "Quick!". Pt's O2 saturations were 97% with his baseline O2 use of 2 LPM NC. This RN notified Swetha from respiratory care. Pt received a breathing treatment from RT. RT recommended chest physiotherapy and anxiety management in addition to ordered interventions. This RN discussed pt's condition with Dr Freed, who agreed that chest physiotherapy and anxiety managment may be beneficial. New orders given. This RN administered ativan and educated the pt on why it was being given. Around 0957, on reassessment of pt, pt was responsive to verbal stimuli but lethargic and not speaking. rn physician office notified of pt's condition. RR 36-40. No ectopy noted on telmetry. Dr Freed called to bedside. Verbal orders given by provider. Planned for roxanol for air hunger, however, pt's hypotension was worsening depsite fluid bolus administration. Dr Freed stated immediate transfer to ICU. Bedside report given to Ibrahima MOHR. This RN notified family member listed in chart to notify of pt's transfer to another unit.
--- NOTE | 2019-01-03 11:15 | NUR ---
CXR DONE TO CONFIRM PICC LINE PLACEMENT. PICC LINE LOOPED, WILL REPOSITION AND RE-XRAY.
--- NOTE | 2019-01-03 11:25 | NUR ---
CXR DONE AFTER REPOSITIONING LINE. PULLED BACK LINE [address] BALDERAS AND CHG DRESSING PLACED. PT INITIALLY OOZED A LARGE AMT OF BLOOD THOUGH HE WERE ON BLOOD THINNERS. PT NOT ON THINNERS IN THE HOSPITAL AND REPORTS HE TAKES A BABY ASA AT HOME.
[2019-01-03 12:01] LABS: Hematocrit 19.4 % (37.0-53.0); Hemoglobin 6.4 g/dL (13.5-17.5)
--- NOTE | 2019-01-03 12:17 | NUR ---
CALLED ELISE (COUSIN) TO OBTAIN BLOOD CONSENT. SHE WILL BE IN SHORTLY TO SIGN PAPERWORK.
--- NOTE | 2019-01-03 12:25 | NUR ---
DR BALDERAS UPDATED ELISE, PT'S COUSIN, WHO IS PT'S POWER OF BROADCAST PRODUCER.
--- NOTE | 2019-01-03 12:32 | NUR ---
PT UPDATE: H+H, AWAITING BLOOD FOR TRANSFUSION, THEN WILL RECHECK H+H. WILL CT ABD TO CHECK FOR BLEEDING. WILL CONSULT GI DR AFTER CT DONE, IF NEED BE.
--- NOTE | 2019-01-03 13:19 | NUR ---
1ST UNIT PRBC'S STARTED. WILL GIVE 2 TOTAL THEN RECHECK H+H. PT CURRENTLY ON LEVOPHED @ 20MCG/MIN.
--- NOTE | 2019-01-03 13:45 | NUR ---
PT UPDATE: 2ND UNIT PRBC'S STARTED AT THIS TIME. SPOKE WITH DR PIERCE WHO WILL COME AND CONSULT ON PT. DISCUSSED HEMODYNAMIC INSTABILITY. PROTONIX BOLUS AND GTT STARTED. WILL GIVE 2 PRBC'S THEN RECHECK LABS.
--- NOTE | 2019-01-03 14:45 | NUR ---
MEGHNA STAT H+H TO RECHECK LEVELS, S/P 2 UNITS OF PRBC'S.
--- NOTE | 2019-01-03 14:47 | NUR ---
PT CONTINUES TO PULL OUT NGT DESPITE BEING IN BILATERAL WRIST RESTRAINTS. DISCUSSED THIS W/DR BALDERAS. WILL KEEP NGT OUT AT THIS TIME.
[2019-01-03 14:55] LABS: Hemoglobin 10.4 g/dL (13.5-17.5)
--- NOTE | 2019-01-03 15:02 | NUR ---
DR PIERCE HERE TO CONSULT WITH PT. WILL DISCUSS F/U H+H W/HIM.
[2019-01-03 16:38] LABS: Hematocrit 30.4 % (37.0-53.0); Hemoglobin 10.1 g/dL (13.5-17.5)
--- NOTE | 2019-01-03 19:00 | NUR ---
SHIFT SUMMARY: PT IS MARKEDLY IMPROVED SINCE ARRIVING TO THE UNIT. SINCE ARRIVAL PT HAD REC'D 1L NS BOLUS, 1L LR BOLUS, AND 2 UNITS PRBC'S. PT WOULD BECOME QUICKLY HYPOTENSIVE AFTER STOPPING BOLUSES/BLOOD, HOWEVER, BP'S MAINTAINED AFTER THE 2ND UNIT OF BLOOD GIVEN. PT IS NOW MORE ALERT AND ORIENTED TO SELF AND PLACE. PT ABLE TO FOLLOW COMMMANDS AND ABLE TO TAKE PT OUT OF RESTRAINTS W/O HIM PULLING ON VITAL LINES. LUNGS CONTINUE TO BE VERY DIMINISHED W/MINIMAL AIR EXCHANGE HEARD BILATERALLY. SATS >90% ON 3L 02 VIA N/C. HR IRREGULAR, ATRIAL FIB, RATES 1100-120'S. LEVOPHED CONTINUES AT 5MCG/MIN. ABD IS ROUND/SOFT/NON-TENDER TO PALPATION. BT'S HYPOACTIVE X4 QAUDS. PT CONINUES ON PROTONIX GTT. NO BM THIS SHIFT, HOWEVER, PT ATTEMPTED SEVERAL TIMES ON BEDPAN TO HAVE A BM. HANSEN CATH WITH 400ML OF DARK, YELLOW URINE. DR PIERCE CONSULTED FOR DECREASING H+H, NOT SCOPING TODAY AND WILL CHECK BACK WITH PT TOMORROW FOR POSSIBLE SCOPE. PT'S H+H CAME UP APPROPRIATELY WITH 2 UNITS PRBC'S AND STABILIZED FOR NOW. HAS ACCEPTED PT AT [facility], BED ASSIGNED, PASSED THIS ONTO [facility] WHOM IS CALLING TO SET UP TRANSPORT.
--- NOTE | 2019-01-03 19:15 | NUR ---
REPORTED OFF TO ONUR MOYA WHOM WILL ASSUME CARE OF THIS PT.
--- NOTE | 2019-01-03 19:20 | NUR ---
CARE ASSUMED REPORT RECIEVED, CARE ASSUMED AT 1900. PT DROWSY, SLOW TO RESPOND. PT ABLE TO STATE NAME BUT UNSURE OF EXACT LOCATION. STATES WE ARE IN [place]. RESPIRATIONS ELEVATED. LUNGS EXTREMELY COARSE THROUGHOUT. BIPAP PLACED. CONTINUES TO REQUIRE LEVOPHED SUPPORT FOR BLOOD PRESSURE. LR AND PROTONIX GTT CONTINUE TO INFUSE. PT AGREES TO CALL FOR NEEDS. LEFT WITH CALL LIGHT IN REACH, BED IN LOWEST POSITION.
--- NOTE | 2019-01-03 20:20 | NUR ---
X-RAY CONFIRMATION OF PICC LINE PER KIRBY, DAY SHIFT RN PT PULLED PICC LINE OUT. REDRESSED BY ONUR ORR. CONFIRMED THAT 15 CM ARE EXPOSED AT THIS TIME. DRESSING SECURE. X-RAY COMPLETED. X-RAY REVIEWED BY DR. BALDERAS. PER DR. BALDERAS, LINE CONTINUES TO BE IN PLACEMENT FOR USE A CENTRAL LINE.
[2019-01-03 20:31] LABS: Hematocrit 26.1 % (37.0-53.0); Hemoglobin 8.7 g/dL (13.5-17.5)
--- NOTE | 2019-01-03 21:00 | NUR ---
DR. BALDERAS/DR. PIERCE COMMUNICATION PER NURSE NOTIFY ORDER, DR. BALDERAS UPDATED ON PT'S MOST RECENT H&H. NEW ORDER FOR [address] BALDERAS REQUEST, DR. PIERCE UPDATED ALSO. DR. PIERCE AGREEABLE TO DR. BALDERAS'S PLAN. OTHERWISE, NO NEW ORDERS.
--- NOTE | 2019-01-03 21:00 | NUR ---
FAMILY UPDATED PT'S SON, ALPHONSE CALLED ICU REQUESTING UPDATE. PT UNABLE TO SIGN CONSENT FORM BUT VERBALIZED TO ONUR LARES AND THIS RN OK TO SHARE INFORMATION WITH SON ALPHONSE. ALPHONSE PROVIDED WITH UPDATE. HE IS OUT OF STATE AND ATTEMPTING TO MAKE PLANS TO VISIT PATIENT. PHONE NUMBER [phone] AND REQUESTING UPDATES IF PT DETERIORATES. NUMBER ALSO PLACED ON PAPER CHART.
--- NOTE | 2019-01-04 01:10 | NUR ---
UPDATE - RESTRAINTS/NEURO THROUGHOUT NIGHT, PT HAS BECOME INCREASINGLY CONFUSED. PT MAKING VARIOUS MOTIONS WITH ARMS/HANDS AND WHEN ASKED IF HE IS HALLUCINATING PT STATES "YES." PT ORIENTED TO SELF AND TOWN. PT CONTINUES TO BE VERY DROWSY. PT REDIRECTABLE BUT QUICKLY FALLS ASLEEP AND FORGETS LIMITATIONS ASSOCIATED WITH LINES/TUBES. PT PULLING AT AND TAKING OFF BIPAP MASK, HANSEN SECUREMENT DEVICE, SHEETS AND CLOTHES AND SPO2 MONITOR REPEATEDLY. REDIRECTABLE ONLY FOR MOMENTS. RESTRAINTS PLACED FOR PT SAFETY AND TO PROTECT LINES/TUBES.
--- NOTE | 2019-01-04 02:36 | NUR ---
H&H MONITORING ORDERS H&H ORDERED FOR 0000. BLOOD STILL INFUSING SO LAB DRAW HELD. DISCUSSED WITH LAB TIMING MORNING LABS FOR AFTER COMPLETION OF SECOND UNIT OF BLOOD AND BASED ON THIS TIME FRAME THE FOLLOWING TWO H&H ORDERS RETIMED FOR 1200 AND 1800, PER [facility] MONITORING ORDER.
[2019-01-04 04:53] LABS: BASOPHILS ABSOLUTE AUTO 0.01 K/mm3 (0.00-0.23); BASOPHILS PERCENT AUTO 0 % (0-2); EOSINOPHILS PERCENT AUTO 0 % (0-6); Hematocrit 31.7 % (37.0-53.0); Hemoglobin 10.5 g/dL (13.5-17.5); IMMATURE GRAN ABSOLUTE AUTO 0.21 K/mm3 (0.00-0.10); IMMATURE GRAN PERCENT AUTO 1 % (0-1); LYMPHOCYTES ABSOLUTE AUTO 0.46 K/mm3 (0.84-5.20); LYMPHOCYTES PERCENT AUTO 3 % (21-46); MONOCYTES ABSOLUTE AUTO 0.55 K/mm3 (0.16-1.47); MONOCYTES PERCENT AUTO 3 % (4-13); Mean Corpuscular HGB 32.1 pg (26.0-34.0); Mean Corpuscular HGB Conc 33.1 g/dL (31.5-36.5); Mean Platelet Volume 10.5 fL (9.1-12.4); NEUTROPHILS ABSOLUTE AUTO 15.05 K/mm3 (1.96-9.15); NEUTROPHILS PERCENT AUTO 92 % (41-73); NRBC ABSOLUTE 0.04 K/mm3 (0.00-0.02); NRBC Auto 0.2 /100 WBC (0.0-0.2); Platelet Count 87 K/mm3 (150-400); RDW Coefficient Variation 14.2 % (11.7-14.2); RDW Standard Deviation 50.8 fL (35.1-46.3); Red Blood Cell Count 3.27 M/mm3 (4.30-5.90); White Blood Cell Count 16.28 K/mm3 (4.00-11.30)
[2019-01-04 04:55] LABS: Mean Corpuscular Volume 97 fL (80-100)
[2019-01-04 05:38] LABS: Albumin, Blood 1.5 g/dL (3.4-5.0); Albumin/Globulin Ratio 0.8 (0.8-1.8); Alk Phos 69 U/L (50-136); Anion Gap 8 mmol/L (6-16); Aspartate Aminotrans (AST/SGOT 753 U/L (12-37); Bilirubin, Total 0.4 mg/dL (0.1-1.0); Blood Urea Nitrogen 72 mg/dL (8-24); Bun/Creatinine Ratio 160.4 (12.0-20.0); CO2, Blood 30 mmol/L (21-32); Calcium, Blood 7.4 mg/dL (8.5-10.1); Chloride, Blood 108 mmol/L (98-108); Creatinine, Blood 0.45 mg/dL (0.60-1.20); Globulin, Blood 1.8 g/dL (2.2-4.0); Glomerular Filtration Rate >60 (60-); Glucose, Blood 173 mg/dL (70-99); Potassium, Blood 4.8 mmol/L (3.5-5.5); Sodium, Blood 146 mmol/L (136-145); Total Protein, Blood 3.3 g/dL (6.4-8.2)
[2019-01-04 05:39] LABS: Alanine Aminotransfer (ALT/SGP 1959 U/L (12-78)
--- NOTE | 2019-01-04 06:49 | NUR ---
DR. PIERCE COMMUNICATION DR. PIERCE CALLED INTO ICU FOR UPDATE ON PATIENT. UPDATED ON MOST RECENT LABS INCLUDING H&H AND LIVER ENZYMES. DR. PIERCE STATES HE PLANS TO BE IN THIS MORNING FOR ASSESSMENT.
--- NOTE | 2019-01-04 07:00 | NUR ---
SUMMARY SINCE PREVIOUS NOTE, PT HAS REMAINED RESTRAINED. PT HAS ON ONE OCCASION GOTTEN OUT OF RESTRAINTS AND PULLED BIPAP MASK AND SPO2 PROBE OFF. WHEN REORIENTED PT STOPS PULLING THINGS OFF. PT EDUCATED ON REASON FOR RESTRAINTS AND AGREEABLE TO THE PLACEMENT OF THEM. PT ABLE TO STATE WE ARE IN THE HOSPITAL OF 0400. BP HAS IMPROVED AFTER INFUSION OF BLOOD. LEVOPHED TITRATED OFF. LUNGS IMPROVED THIS MORNING. CONTINUE TO BE SLIGHTLY COARSE. SEE FLOWSHEETS FOR VITALS AND TITRATIONS.
--- NOTE | 2019-01-04 07:21 | NUR ---
REPORT TO ONUR SAUCEDO TO ASSUME CARE
--- NOTE | 2019-01-04 08:00 | NUR ---
MD PIERCE TO ROOM MD PIERCE UPDATED PATIENT AND FAMILY (ELISE MIGUEL) ON CONDTION OF PATIENT AND CONCERN FOR INTUBATION WITH UPPER SCOPE DUE TO PATIENT UNABLE TO TOLERATE BEING OFF THE BIPAP.
[2019-01-04 10:12] LABS: Hematocrit 30.6 % (37.0-53.0); Hemoglobin 10.1 g/dL (13.5-17.5)
--- NOTE | 2019-01-04 10:51 | NUR ---
MD BALDERAS TO ROOM WITH ROUNDING PATIENT ALERT TO SELF AND LOCATION. PATIENT CONTINUES TO DESATURATE WITH ANY MOVEMENT - PATIENT UNABLE TO TOLERATE BEING OFF THE BIPAP. RESPIRATION RATE 30-40 WITH BIPAP ON AND FIO2 40%. SHERRIE CHANGED SETTINGS FROM 09/23 TO 09/25. SPOKE WITH MD BALDERAS REGARDING UPPER SCOPE BY MD PIERCE THIS AFTERNOON WITH POSSIBLE INTUBATION DUE TO INTOLERANCE OF BEING ABLE TO BE OFF BIPAP. WILL CONTINUE TO MONITOR CLOSELY. DISCUSSED WITH RESPIRTORY THERAPIST KAYLA.
--- NOTE | 2019-01-04 13:48 | NUR ---
01/04/19 1348 Howie Figueroa See Anesthesia recordS PER DR BAUTISTA
--- NOTE | 2019-01-04 15:00 | NUR ---
ICU 1500 SHIFT SUMMARY (TRANSFER OF CARE) 1000 - PATIENTS WOB CONTINUED TO BE LABORED AT REST WITH BIPAP IN PLACE FIO2 50% - MD BALDERAS AWARE. PATIENT TO BE INTUBATED FOR UPPER SCOPE AT APPROX 1330. 1300 - PATIENT BECOME UNRESPONSIVE WHILE ON BIPAP AND BECAME HYPOTENSIVE. PATIENT INTUBED, PRESSURES STARTED PER EMAR. LR BOLUS GIVEN. 1345 (APPROX) - BLOOD PRODUCTS STARTED PER KARI AT BEDSIDE DURING UPPER ENDOSCOPY, GI ULCERS NOTED DURING SCOPE SIGNIFICANT. PRESSURES TITRATED PER B/P. 1400 - MD BALDERAS AT BEDSIDE. UPDATE OF HYPOTENSIVE PERIOD, PATIENTS NONRESPONSIVENESS ON BIPAP PRIOR TO INTUBATION AND UPPER SCOPE FINDINGS PER MD PIERCE. 1500- PATIENT IN NO ACUTE DISTRESS ON VENT - ABG OBTAINED WNL. REPORTED OFF TO JONNY MOHR.
[2019-01-04 15:27] LABS: PCO2 Arterial 49.6 mmHg (35-45); PO2 Arterial 99.3 mmHg (80-100); pH Blood Arterial 7.37 (7.35-7.45)
--- NOTE | 2019-01-04 15:49 | NUR ---
ASSUMED CARE PT. INTUBATED AT THIS TIME. PT OPENS EYES TO VERBAL STIMULI AND FOLLOWS SIMPLE COMMANDS, HR ELEVATES WITH STIMULATION TO THE 140S PROPOFOL STARTED AT 25MCG/KG/MIN. PT. LEVOPHED GTT CURRENTLY INFUSING AT 8MCG/KG/MIN, VASOPRESSIN ON STAND BY AT BEDSIDE. PT. ALSO HAS PROTONIX INFUSING AT 10ML/HR PT. VENT SETTINGS CURRENTLY AC 16, 400, 50%, PEEP 8. LS CLEAR/ DIM. NO SECREATIONS NOTED WITH ETT SUCTIONING. PT. TUBE CURRENTLY 25 AT THE TEETH. PT. DISPLAYS NO SIGNS OF PAIN AT THIS TIME CNVI=0. PT. ABD SOFT BUT DISTENDED; PLANS FOR OG TUBE PLACEMENT OKAY PER DR. PIERCE. PT. HAS HYPERACTIVE BOWL TONES. PT. HAS BILAT WRIST RESTRAINTS IN PLACE FOR SAFETY. REDNESS AND SWELLING NOTED TO BILAT EXTREMETIES WELL BRUISING TO PT SECOND TOE ON LEFT FOOT. WILL CONTINUE TO TITRATE PRESSORS FOR HYPOTENSION. PT. COMPLETED 1 UNIT OF PRBC POST SCOPE. PER DR. PIERCE ONLY INFUSE 1 UNIT AT THIS TIME. PICC LINE REMAINS TO LEFT UPPER ARM; DRESSING CDI.
--- NOTE | 2019-01-04 16:02 | NUR ---
PT BECOMES HYPOTENSIVE POST STARTING LOW DOSE OF PROPOFOL PROPOFOL TITRATED DOWN TO 10MCG/KG/MIN, LEVOPHED TITRATED UP TO 20MCG/KG/MIN AND VASOPRESSIN RESTARTED. LR STARTED AT 150ML/HR.
--- NOTE | 2019-01-04 17:32 | NUR ---
LIQUID STOOL PT. HAD LIQUID DARK MAROON BM, MEPILEX TO COCCYX REMOVED DUE TO BEING SOILED. OPEN SKIN/ REDNESS NOTED TO COCCYX. RECTAL TUBE PLACED AT THIS TIME AND NEW MEPILEX PLACED TO COCCYX.
--- NOTE | 2019-01-04 17:39 | NUR ---
Initial Visit: Palliative Care Consult for Goals of Care. Pt is resting with his eyes closed and is intubated. FLACC score is 0/10. Spoke with Pt's nurse Funmi and she reports only concern is Pt's code status may need to be addressed. Funmi reports Pt's cousin Danita has been addressing Pt's health care needs. Called and spoke with Danita and she reports that she is the Pt's POA. Engaged in therapeutic conversation regarding goals of care for Pt. Danita reports that Pt's lives at [facility] in [place] and he has no judaism beliefs. His brother past away several years ago and his son lives in [place]. Danita communicates with Pt's son and other family members that live in various states and gives them updated on Pt's condition. Chago wanted to know how the Pt's procedure went today. Discussed surgeons findings and plan according to note. Engaged in discussion regarding Pt's COPD disease process and goals as the disease process takes it's coarse. Danita reports the Pt's wishes are to keep fighting as long as he can. She states that he told her "As long as there is signs of life in me, do not pull the plug". Danita did report that they may have to consider a higher level of care for Pt at some point pending his recovery from this current hospital stay. Danita reports that she will bring in the POA for us to copy. Danita reports no other concerns at this time. Plan: Obtain copy of POA. Will remain available.
--- NOTE | 2019-01-04 18:09 | NUR ---
Late Entry from Initial Visit. During discussion regarding goals of care, educated Danita of options the Pt has as the disease process takes it coars including the option for hospice. This is when Danita discussed Pt's wishes to keep fighting.
--- NOTE | 2019-01-04 18:30 | NUR ---
CONTINUED HYPOTENSION SPOKE WITH DR BALDERAS REGARDING CONTINUED HYPOTENSION WITH USE OF LEVOPHED AND VASOPRESSIN. PER DR. BALDERAS ADDITIONAL 1L BOLUS OF LR GIVEN.
--- NOTE | 2019-01-04 18:36 | NUR ---
OG TUBE PLACED JAMIL FLUID FROM OG TUBE, PLACED TO LIS.
[2019-01-04 20:38] LABS: Hematocrit 34.5 % (37.0-53.0); Hemoglobin 11.4 g/dL (13.5-17.5)
--- NOTE | 2019-01-04 22:10 | NUR ---
REPORT TO FELICIA MOHR
--- NOTE | 2019-01-04 22:30 | NUR ---
CALL TO DR. BALDERAS FOR HYPOTENSION CURRENTLY LEVOPHED GTT AT 30MCG/KG/MIN, ALONG WITH VASOPRESSIN. PROPOFOL GTT AT 35MCG/KG/MIN. PER DR. BALDERAS LABS TO BE DRAWN AND 1L BOLUS TO BE GIVEN.
[2019-01-04 22:59] LABS: Hematocrit 33.4 % (37.0-53.0); Hemoglobin 11.3 g/dL (13.5-17.5)
--- NOTE | 2019-01-04 23:17 | NUR ---
REPORT FROM JONNY MOHR. PT REPOSITIONED AND GTTS CONFIRMED.
[2019-01-05 03:29] LABS: Hematocrit 33.3 % (37.0-53.0); Hemoglobin 11.1 g/dL (13.5-17.5); Mean Corpuscular HGB 32.5 pg (26.0-34.0); Mean Corpuscular HGB Conc 33.3 g/dL (31.5-36.5); Mean Corpuscular Volume 97 fL (80-100); Mean Platelet Volume 11.2 fL (9.1-12.4); NRBC ABSOLUTE 2.07 K/mm3 (0.00-0.02); NRBC Auto 8.3 /100 WBC (0.0-0.2); Platelet Count 85 K/mm3 (150-400); RDW Coefficient Variation 14.1 % (11.7-14.2); RDW Standard Deviation 49.6 fL (35.1-46.3); Red Blood Cell Count 3.42 M/mm3 (4.30-5.90)
[2019-01-05 03:51] LABS: Anion Gap 10 mmol/L (6-16); Blood Urea Nitrogen 77 mg/dL (8-24); Bun/Creatinine Ratio 144.7 (12.0-20.0); CO2, Blood 25 mmol/L (21-32); Calcium, Blood 7.5 mg/dL (8.5-10.1); Chloride, Blood 105 mmol/L (98-108); Creatinine, Blood 0.53 mg/dL (0.60-1.20); Glomerular Filtration Rate >60 (60-); Glucose, Blood 295 mg/dL (70-99); Potassium, Blood 5.2 mmol/L (3.5-5.5); Sodium, Blood 140 mmol/L (136-145)
[2019-01-05 03:57] LABS: Digoxin (Lanoxin) 1.15 ug/mL (0.80-2.00)
[2019-01-05 05:17] LABS: PCO2 Arterial 38.5 mmHg (35-45); pH Blood Arterial 7.47 (7.35-7.45)
--- NOTE | 2019-01-05 05:58 | NUR ---
END OF SHIFT: PT REMAINS INTUBATED: A/C 16, Vt 400, PEEP 8.0, FiO2 30%, SATS >95%. GTT: LEVOPHED 13mcg/min, PROPOFOL 40mcg/kg/min, VASOPRESSIN 0.04u/min, PROTONIX, LR 150/hr, AND TKO. PT OCCASIONALLY CURTIS AND TURNS HEAD BUT DOESN'T OPEN EYES TO NAME. BILATERAL UPPER EXTREM WITH AGING BRUISES AND WEEPING EDEMA THAT HAS IMPROVED T/O NOC. HANSEN CATHETER PATENT DRAINING TO GRAVITY. DIGNISHIELD BAG CHANGED AT MIDSHIFT AND IS DRAINING DARK BROWNISH BLACK LIQUIED STOOL. H&H LABS DID NOT REQUIRE A CALL TO DR. BALDERAS SINCE HcT ABOVE 8.0. VSS (SEE FLOW CHARTING). WILL CONTINUE TO TITRATE PRESSORS AND PROPOFOL.
--- NOTE | 2019-01-05 08:02 | NUR ---
ASSUMED CARE ASSUMED CARE OF PT AT 0700. REPORT RECEIVED FROM ONUR DUARTE. PT INTUBATED, SEDATED. VENT SETTINGS AC 16, TV 400, PEEP 8, FIO2 30%, ACTUAL RR 18. LUNG SOUNDS DIMINISHED T/O, COARSE AT LEFT BASE AND WHEEZY AT RIGHT BASE. PT GRIMACES TO ORAL CARE AND REPOSITIONING, WITHDRAWS TO PAINFUL STIMULI. PLAN FOR SEDATION VACATION THIS AM. MONITOR SHOWS AFIB/A FLUTTER WITH HR 120-130'S, MAP 65 AT THIS TIME. PT HAS OG TUBE IN PLACE TO LOW INT WALL SUCTION WITH SMALL AMT YELLOW LIQUID OUTPUT. TEMP HANSEN IN PLACE DRAINING YELLOW URINE TO GRAVITY, TEMP READING 99.9, BLANKETS REMOVED FROM PT. PT HAS RECTAL TUBE IN PLACE WITH BLACK LIQUID OUTPUT TO GRAVITY. PT HAS PICC TO NITISH WITH LR 150ML/HR, PROTONIX 10ML/HR, LEVOPHED 13MCG/MIN, VASOPRESSIN 2.4ML/HR, PROPOFOL 40MCG/KG/MIN. PT HAS GEOVANNI SOFT WRIST RESTRAINTS IN PLACE TO PROTECT LINES, TUBES. WILL CONTINUE TO MONITOR PT CLOSELY.
--- NOTE | 2019-01-05 11:22 | NUR ---
DR. KARI SRINIVASAN'D PT FOR NUTRITION THROUGH OG TUBE.
--- NOTE | 2019-01-05 12:34 | NUR ---
DR. SHERRIE BALDERAS ROUNDED ON PT. PEEP DECREASED FROM 8 TO 5. PLANS FOR SEDATION VACATION THIS AFTERNOON AND POSSIBLE SBT AT THAT TIME. BACTRIM WAS ADDED FOR SPUTUM SAMPLE RESULTS. EDITH MALLOY.
--- NOTE | 2019-01-05 12:58 | NUR ---
RESP RATE DECREASED TO 12 AT THIS TIME PER [address] BALDERAS.
--- NOTE | 2019-01-05 12:59 | NUR ---
PIVOT 1.5 TUBE FEEDING STARTED AT 20ML/HR WITH 30ML Q4H WATER FLUSH.
--- NOTE | 2019-01-05 13:55 | NUR ---
CHARGE NURSE NOTE TRANSFUSION ENDED 01/04/19
--- NOTE | 2019-01-05 17:04 | NUR ---
SEDATION VACATION PROPOFOL TITRATED FROM 40MCG/KG DOWN TO 20MCG/KG. PT ABLE TO OPEN EYES TO VOICE, FOLLOW COMMANDS TO WIGGLE TOES AND SQUEEZE HANDS. PT BEGAN TO STACK BREATHS AND APPEAR UNCOMFORTABLE, HR INCREASED. PROPOFOL TITRATED BACK UP TO 30 MCG/KG. PT CALM AT THIS TIME. WILL CONTINUE TO MONITOR.
--- NOTE | 2019-01-05 18:04 | NUR ---
SHIFT SUMMARY PT CONTINUES INTUBATED AND SEDATED. VENT SETTINGS CHANGED BY DR. BALDERAS TODAY, CURRENTLY AC 12, TV 400, PEEP 5, FIO2 30%, ACTUAL RR ~16. PROPOFOL CURRENTLY AT 30MCG/KG AND PT CALM, SYNCHRONOUS WITH VENT WITH THIS. PT CONTINUES ON LEVOPHED AND VASOPRESSIN TO MAINTAIN MAP >65, LEVOPHED CURRENTLY AT 8MCG/MIN AND VASOPRESSIN 2.4ML/HR. PT WAS STARTED ON TUBE FEEDING TODAY VIA OG TUBE - PIVOT 1.5 CURRENTLY AT 20ML/HR WITH 30ML Q4H WATER FLUSHES. RECTAL TUBE CONTINUES TO DRAIN DARK LIQUID TO GRAVITY - 125 ML OUT THIS SHIFT. TEMP HANSEN DRAINING DARK YELLOW URINE TO GRAVITY. GEOVANNI SOFT WRIST RESTRAINTS IN PLACE TO PROTECT LINES, TUBES. WILL CONTINUE TO MONITOR PT AND GIVE HANDOFF REPORT TO ONCOMING RN.
--- NOTE | 2019-01-05 19:45 | NUR ---
ASSUMED CARE BEDSIDE REPORT RECIEVED. PT IS SEDATED ON VENT. VENT SETTINGS AC 12, TV 400, PEEP 5, FIO2 30%. PT WITH PICC TO NITISH, OUT 15 CM, C/D/I. PROPOFOL INFUSING AT 30 MCG/KG/MIN, PROTONIX 10 ML/HR, VASOPRESSIN 0.04 UNITS/MIN, AND LEVOPHED AT 8 MCG/MIN. VITAL SIGNS STABLE AT THIS TIME. PT AFIB/FLUTTER 90-120'S. OGT IN PLACE WITH TF AT 20 ML/HR. WILL INCREASE TO GOAL RATE TOLERATED. SBW RESTRAINTS IN PLACE. PT WITH WEEPING EDEMA TO BILAT UPPER EXTREMITIES. HANSEN IN PLACE WITY CLEAR YELLOW OUTPUT NOTED. RECTAL TUBE IN PLACE WITH BLACK/MAROON LIQUID OUTPUT NOTED. NO ACUTE BLEEDING NOTED. WILL CONTINUE TO MONITOR.
[2019-01-06 04:24] LABS: Hematocrit 26.1 % (37.0-53.0); Hemoglobin 8.7 g/dL (13.5-17.5); Mean Corpuscular HGB Conc 33.3 g/dL (31.5-36.5); Mean Corpuscular Volume 96 fL (80-100); NRBC ABSOLUTE 0.41 K/mm3 (0.00-0.02); NRBC Auto 2.3 /100 WBC (0.0-0.2); Platelet Count 68 K/mm3 (150-400); RDW Coefficient Variation 13.8 % (11.7-14.2); RDW Standard Deviation 47.5 fL (35.1-46.3); Red Blood Cell Count 2.72 M/mm3 (4.30-5.90); White Blood Cell Count 17.84 K/mm3 (4.00-11.30)
[2019-01-06 04:37] LABS: Anion Gap 7 mmol/L (6-16); Blood Urea Nitrogen 44 mg/dL (8-24); Bun/Creatinine Ratio 132.5 (12.0-20.0); CO2, Blood 30 mmol/L (21-32); Calcium, Blood 7.2 mg/dL (8.5-10.1); Chloride, Blood 103 mmol/L (98-108); Creatinine, Blood 0.33 mg/dL (0.60-1.20); Glomerular Filtration Rate >60 (60-); Glucose, Blood 305 mg/dL (70-99); Magnesium, Blood 1.9 mg/dL (1.6-2.4); Phosphorus, Blood 1.8 mg/dL (2.5-4.9); Potassium, Blood 4.3 mmol/L (3.5-5.5); Sodium, Blood 140 mmol/L (136-145)
--- NOTE | 2019-01-06 05:37 | NUR ---
SHIFT SUMMARY NO ACUTE CHANGES THIS SHIFT. PT HAS REMAINED ON THE VENT AT AC 12, TV 400, PEEP 5, FIO2 30%. VITAL SIGNS HAVE REMAINED STABLE, PT REMAINS AFIB/FLUTTER. LEVOPHED AT 6 MCG/MIN, PROPOFOL AT 30 MCG/KG/MIN, PROTONIX AT 10 ML/HR, VASOPRESSIN 0.04 UNITS/MIN. OGT REMAINS IN PLACE WITH TF AT 30 ML/HR GOAL RATE, MINIMAL TO NO RESIDUALS NOTED. HANSEN REMAINS IN PLACE WITH GOOD OUTPUT NOTED. RECTAL TUBE IN PLACE WITH BLACK LIQUID OUTPUT NOTED. PT DID WELL WITH SEDATION VACATION AND SBT THIS AM. PT IS ABLE TO FOLLOW COMMANDS AND SHAKE HEAD TO QUESTIONS APPROPRIATELY. PT DENIES PAIN. WILL CONTINUE TO MONITOR AND REPORT OFF TO ONCOMING RN.
[2019-01-06 05:39] LABS: PCO2 Arterial 39.1 mmHg (35-45); PO2 Arterial 102 mmHg (80-100); pH Blood Arterial 7.51 (7.35-7.45)
--- NOTE | 2019-01-06 07:30 | NUR ---
ASSESSMENT- ASSUMED CARE OF THE PT. PT. SEDATED AND INTUBATED. DOES FOLLOW A FEW SIMPLE COMMANDS. BALAJI. MONITOR CON'T A-FIB/FLUTTER WITH RATES 90-100'S. MAEGAN TF WITH MIN RESID. RECTAL TUBE INTACT WITH MELENA. IV'S INFUSING: KPHOS AT 102 ML/HR, PROTONIX AT 10 ML/HR,LEVOPHED AT 6 MCG/MIN, VASOPRESSIN AT 2.4 ML/HR, PROPAFOL AT 30 MCG/MIN.
--- NOTE | 2019-01-06 10:00 | NUR ---
VASOPRESSORS- VASOPRESSIN DC'D, LEVOPHED TITRATED DOWN TO 3 MCG/MIN.
--- NOTE | 2019-01-06 10:45 | NUR ---
SEDATION VACATION- PROPAFOL DECREASED TO 5 MCG/MIN AND WILL ATTEMPT BREATHING TRIAL. PROPAFOL RESUMED AT 30 MCG/MIN PAST 15 MIN DUE TO HR 130-150'S.
[2019-01-06 12:34] LABS: Hematocrit 25.4 % (37.0-53.0); Hemoglobin 8.5 g/dL (13.5-17.5)
--- NOTE | 2019-01-06 13:49 | NUR ---
LEVOPHED- INCREASED TO 10 MCG/MIN DUE TO LABILE BP. DR. PIERCE INTO SEE PT AND ORDERS NOTED.
--- NOTE | 2019-01-06 13:51 | NUR ---
RBC- 1 UNIT RBC STARTED.
[2019-01-06 17:32] LABS: Hematocrit 30.4 % (37.0-53.0); Hemoglobin 10.2 g/dL (13.5-17.5)
--- NOTE | 2019-01-06 19:04 | NUR ---
SUMMARY-NO ACUTE CHANGE IN STATUS. SKIN WEEPING AND CON'T SWOLLEN. SCROTUM ELEV FOR SWELLING. GD U/O. 250 CC MELENA FROM RECTAL TUBE. VASOPRESSIN REMAINS OFF. LEVOPHED AT 6 MCG/MIN. SM. AMT OF BLOODY ETT SECRETIONS PAST ETT ADJUSTMENT.
--- NOTE | 2019-01-06 19:45 | NUR ---
ASSUMED CARE BEDSIDE REPORT RECIEVED. PT IS INTUBATED AND SEDATED. AC 12, TV 400, PEEP 5, FIO2 30%. PT SEDATED WITH PROPOFOL AT 30 MCG/KG/MIN. VITAL SIGNS STABLE WITH LEVOPHED AT 6 MCG/MIN. PROTONIX INFUSING AT 10 ML/HR. OGT IN PLACE WITH TF AT 30 ML/HR GOAL RATE. NO RESIDUALS. PICC TO NITISH C/D/I. SBW RESTRAINTS IN PLACE. HANSEN IN PLACE WITH YELLOW OUTPUT NOTED. RECTAL TUBE IN PLACE WITH BLACK LIQUID OUTPUT NOTED. PT ARMS WITH WEEPING EDEMA. PT GRIMMACES AND TURNS HEAD WITH CARE. WILL CONTINUE TO MONITOR.
[2019-01-06 21:30] LABS: Hematocrit 30.1 % (37.0-53.0)
[2019-01-07 01:15] LABS: Hematocrit 29.7 % (37.0-53.0)
[2019-01-07 05:31] LABS: Hematocrit 30.1 % (37.0-53.0); Mean Corpuscular HGB 32.2 pg (26.0-34.0); Mean Corpuscular HGB Conc 33.2 g/dL (31.5-36.5); Mean Corpuscular Volume 97 fL (80-100); Mean Platelet Volume 10.9 fL (9.1-12.4); NRBC ABSOLUTE 0.11 K/mm3 (0.00-0.02); NRBC Auto 0.7 /100 WBC (0.0-0.2); Platelet Count 59 K/mm3 (150-400); RDW Coefficient Variation 13.9 % (11.7-14.2); RDW Standard Deviation 47.5 fL (35.1-46.3); Red Blood Cell Count 3.11 M/mm3 (4.30-5.90); White Blood Cell Count 15.18 K/mm3 (4.00-11.30)
--- NOTE | 2019-01-07 06:00 | NUR ---
SHIFT SUMMARY NO ACUTE CHANGES THIS SHIFT. PT REMAINS SEDATED ON VENT. VENT SETTINGS UNCHANGED. PT DID WELL WITH SBT THIS AM. PT FOLLOWING COMMANDS APPROPRIATELY AND IS ABLE TO NOD HEAD YES OR NO TO QUESTIONS. PROPOFOL RESTARTED AT 40 MCG/KG/MIN, LEVOPHED REMAINS AT 6 MCG/MIN, AND PROTONIX AT 10 ML/HR. PICC C/D/I. OGT IN PLACE WITH TF AT 30 ML/HR GOAL RATE, MINIMAL RESIDUALS NOTED. HANSEN IN PLACE WITH GOOD URINE OUTPUT. RECTAL TUBE REMAINS IN PLACE WITH DARK BROWN LIQUID OUTPUT NOTED. PT CONTINUES TO HAVE WEEPING EDEMA TO BUE. SBW RESTRAINTS REMAIN IN PLACE. VITAL SIGNS HAVE REMAINED STABLE WITH HR PERIODICALLY JUMPING UP TO 140-160'S AFIB, THEN RETURNING TO 120-130'S. WILL CONTINUE TO MONITOR AND REPORT OFF TO ONCOMING RN.
[2019-01-07 06:02] LABS: Alanine Aminotransfer (ALT/SGP 999 U/L (12-78); Albumin, Blood 1.2 g/dL (3.4-5.0); Albumin/Globulin Ratio 0.5 (0.8-1.8); Alk Phos 146 U/L (50-136); Anion Gap 6 mmol/L (6-16); Aspartate Aminotrans (AST/SGOT 141 U/L (12-37); Bilirubin, Total 0.3 mg/dL (0.1-1.0); Blood Urea Nitrogen 25 mg/dL (8-24); Bun/Creatinine Ratio 81.7 (12.0-20.0); CO2, Blood 32 mmol/L (21-32); Calcium, Blood 7.3 mg/dL (8.5-10.1); Chloride, Blood 105 mmol/L (98-108); Creatinine, Blood 0.31 mg/dL (0.60-1.20); Globulin, Blood 2.4 g/dL (2.2-4.0); Glomerular Filtration Rate >60 (60-); Glucose, Blood 216 mg/dL (70-99); Magnesium, Blood 2.1 mg/dL (1.6-2.4); Phosphorus, Blood 1.6 mg/dL (2.5-4.9); Potassium, Blood 4.2 mmol/L (3.5-5.5); Sodium, Blood 143 mmol/L (136-145); Total Protein, Blood 3.6 g/dL (6.4-8.2)
[2019-01-07 06:03] LABS: BAND PERCENT MAN 8 % (0-8); BASOPHILS PERCENT MAN 0 % (0-2); EOSINOPHILS PERCENT MAN 0 % (0-6); LYMPHOCYTES ABSOLUTE MAN 0.15 K/mm3 (0.84-5.20); LYMPHOCYTES PERCENT MAN 1 % (21-46); METAMYELOCYTE ABSOLUTE MAN 0.15 K/mm3 (0.00-0.00); METAMYELOCYTE PERCENT MAN 1 % (0-0); MONOCYTES ABSOLUTE MAN 0.15 K/mm3 (0.16-1.47); MONOCYTES PERCENT MAN 1 % (4-13); NEUTROPHILS ABSOLUTE MAN 14.72 K/mm3 (1.96-9.15); SEG NEUTROPHILS PERCENT MAN 89 % (41-73); TOTAL CELLS COUNTED 96
[2019-01-07 06:19] LABS: Digoxin (Lanoxin) 1.02 ug/mL (0.80-2.00)
--- NOTE | 2019-01-07 07:30 | NUR ---
ASSUMED CARE PT REMAINS SEDATED AND INTUBATED; RESPONDS TO VERBAL STIMULI AND GRIMICES AND MOVES ALL EXTREMETIES WITH REPOSITIONING AND ORAL CARE. PT. CURRENTLY ON PROPOFOL AT 40MCG/KG/MIN. PT. VENT SETTINGS OF AC 12, TV 400, PEEP 5, 25% THIS AM. CURRENTLY HAS TUBE FEED INFUSING AT 30ML WITH LESS THAN 10ML RESIDUAL. FLEXISEAL AND HANSEN DRAINING TO GRAVITY. NEW MEPILEX PLACED TO COCCYX WITH PERICARE.
[2019-01-07 09:16] LABS: Hematocrit 28.8 % (37.0-53.0); Hemoglobin 9.7 g/dL (13.5-17.5)
--- NOTE | 2019-01-07 11:07 | NUR ---
PROVIDER AT BEDSIDE PLANS FOR WEAN AGAIN TODAY WITH POSSIBLE EXTUBATION
--- NOTE | 2019-01-07 12:32 | NUR ---
PRESSURE SUPPORT PT. PLACED ON PS 5, PEEP 5 AT THIS TIME FIO2 OF 25. PT. TOLERATING WELL. LEVOPHED GTT DECREASED TO 5MCG/KG/MIN WILL CONTINUE TO TITRATE PER DR. BARNES
--- NOTE | 2019-01-07 14:12 | NUR ---
[address] MOONEY. PT. BILAT WRIST RESTRAINTS REMOVED UPON EXTUBATION. PLACED ON 3LNC AT THIS TIME. PT SPO2 97% AT THIS TIME, PT RR 25 AND WOB SEEMS TO HAVE INCREASED. BIPAP AT BEDSIDE IF NEEDED. CALL LIGHT IN REACH
--- NOTE | 2019-01-07 15:38 | NUR ---
LEVOPHED PLACED ON STANDBY AT THIS TIME.
--- NOTE | 2019-01-07 15:50 | NUR ---
CALL TO VINICIO FOR HR FROM 130S-160S PT RESTING COMFORTABLY IN BED, DENYING PAIN. NO S/S OF RESP DISTRESS. CALL TO NOTIFY DR. MOONEY. AT THIS TIME NO NEW ORDERS. HOWEVER WOULD LIKE TO BE UPDATED IF RATE MAINTAINS IN THE 150S-160S
--- NOTE | 2019-01-07 17:29 | NUR ---
SHIFT SUMMARY PT. EXTUBATED TODAY. REMAINS ON 3LNC AT THIS TIME. TOLERATING WELL. PT HAS POOR COUGH AND IS SOB WITH ANY REPOSITIONING IN BED. PT. SHAKES HEAD NO TO BEING ABLE TO CLEAR THROAT AND COUGH. REMAINS NPO AT THIS TIME WITH FREQUENT ORAL CARE. PT. NEEDS MAX ASSIST TO REPOSITION. PT. EXTREMETIES ELEVATED ON PILLOWS WITH DRI-ENRRIQUE PADS IN PLACE DUE TO WEAPING EXTREMITIES. PT. CONTINUES WITH RECTAL TUBE, DRAINING TO GRAVITY ALONG WITH HNASEN CATHETER. LEVOPHED GTT OFF THIS SHIFT; DR. MOONEY AWARE OF FLUCTUATION IN HEART RATE. MERLYN. REPORT TO ONCOMING RN.
--- NOTE | 2019-01-07 20:00 | NUR ---
ASSUMED PT CARE AT 1915 PT SITTING UP IN BED WITH OXYGEN VIA NC AT 3L. PT ALERT AND ORIENTED; ABLE TO FOLLOW COMMANDS AND MAKE NEEDS KNOWN. PT HAS VERY WEAK COUGH, NOT ABLE TO CLEAR THROAT/PROTECT AIRWAY. ALL MEDICATIONS ARE ORDERED PO; HOWEVER, I FEEL AT THIS TIME PT WOULDN'T BE ABLE TO PROTECT HIS AIRWAY ADEQUEATELY ENOUGH; HOLDING MEDICATIONS FOR NOW; WILL CONTACT DR. MOONEY FOR FURTHER ORDERS/INSTRUCTIONS. PT HAS NO COMPLAINTS AT THIS TIME. STATES HE IS COMFORTABLE. CALL LIGHT IN REACH.
--- NOTE | 2019-01-07 22:02 | NUR ---
PLACED NG TUBE FOR MEDICATION ADMINISTRATION. PLACEMENT CHECKED; NO GASTRIC CONTENTS RETRIEVED. PT TOLERATED PLACEMENT VERY WELL. NO COUGHING, GAGGING, OR DIFFICULTY BREATHING. PT STATES IT IS "UNCOMFORTABLE"; HOWEVER, THAT IS ISN'T CAUSING HIM ANY PAIN OR DISTRESS.
[2019-01-08 05:12] LABS: Hematocrit 35.4 % (37.0-53.0); Hemoglobin 11.1 g/dL (13.5-17.5); Mean Corpuscular HGB 31.6 pg (26.0-34.0); Mean Corpuscular HGB Conc 31.4 g/dL (31.5-36.5); Mean Platelet Volume 11.1 fL (9.1-12.4); NRBC ABSOLUTE 0.03 K/mm3 (0.00-0.02); NRBC Auto 0.2 /100 WBC (0.0-0.2); Platelet Count 74 K/mm3 (150-400); RDW Coefficient Variation 14.4 % (11.7-14.2); RDW Standard Deviation 49.9 fL (35.1-46.3); Red Blood Cell Count 3.51 M/mm3 (4.30-5.90); White Blood Cell Count 12.39 K/mm3 (4.00-11.30)
[2019-01-08 05:26] LABS: Anion Gap 3 mmol/L (6-16); Blood Urea Nitrogen 20 mg/dL (8-24); Bun/Creatinine Ratio 65.8 (12.0-20.0); CO2, Blood 35 mmol/L (21-32); Calcium, Blood 7.7 mg/dL (8.5-10.1); Chloride, Blood 103 mmol/L (98-108); Glomerular Filtration Rate >60 (60-); Glucose, Blood 75 mg/dL (70-99); Magnesium, Blood 2.3 mg/dL (1.6-2.4); Phosphorus, Blood 2.7 mg/dL (2.5-4.9); Sodium, Blood 141 mmol/L (136-145)
[2019-01-08 05:37] LABS: Mean Corpuscular Volume 101 fL (80-100)
--- NOTE | 2019-01-08 05:42 | NUR ---
END OF SHIFT SUMMARY PT HAS REMAINED ON OXYGEN VIA NC; STARTED OUT AT 3L VIA NC; THEN TITRATED DOWN TO 1L WITH OXYGEN SATURATIONS MAINTAINING GREATER THAN 95%. NG TUBE PLACED DOWN RIGHT NARE IN ORDER TO ADMINISTER MEDICATIONS D/T PT STILL HAVING DIFFICULTY COUGHING/CLEARING THROAT. PT REMAINS VERY EDEMATOUS WITH WEEPING AND PITTING EDEMA; BILATERAL ARMS ELEVATED ON PILLOWS. NS CONTINUES TKO AND PROTONIX AT 10MLS/HR. D/C'D RECTAL TUBE THIS AM D/T PT HAVING SOFT, PASTY STOOL AND NOT DRAINING ADEQUATELY; PT TOLERATED WELL. LUNG SOUNDS HAVE REMAINED DIMINISHED T/O NIGHT WITH OCCASIONAL AUDIBLE WHEEZING. HR HAS REMAINED 120'S-130'S WITH OCCASIONAL 150'S WITH TURNING/REPOSITIONING. RHYTHM HAS REMAINED IN AFIB. PT DENIES ANY PAIN; JUST STATES THE NG TUBE CAUSES HIM DISCOMFORT. HANSEN CATHETER IS PATENT AND DRAINING TO GRAVITY. CALL LIGHT IN REACH. PT ABLE TO COMMUNICATE NEEDS.
--- NOTE | 2019-01-08 08:19 | NUR ---
DR JOHNSON ROUNDS DR JOHNSON NOTIFIED OF PT LEFT ARM NOTED TO BE SLIGHTLY MORE SWOLLEN THAN LEFT. PICC TO NITISH. ORDERS RECEIVED FOR VENOUS DUPLEX STUDY TO LEFT ARM TO R/O DVT. NO FURTHER CHANGES TO PLAN OF CARE AT THIS TIME. WILL CONT TO MONITOR PT.
--- NOTE | 2019-01-08 09:48 | NUR ---
VENOUS DUPLEX STUDY TECH AT BEDSIDE FOR VENOUS DUPLEX STUDY OF LEFT ARM. PER TECH PT IS NEGATIVE FOR DVT, BUT POSITIVE FOR SUPERFICIAL CEPHALIC JUST BELOW ELBOW. WILL NOTIFY DR MOONEY.
--- NOTE | 2019-01-08 10:44 | NUR ---
DR VINICIO MOONEY NOTIFIED OF PT'S INCREASED RR, ACCESSORY MUSCLE USE, AND OVERALL APPEARANCE. ORDER RECEIVED FOR STAT VBG AND BIPAP. SALOMÓN RT NOTIFIED OF BIPAP. WILL CONT TO MONITOR PT.
[2019-01-08 11:24] LABS: Base Excess Venous 12.2 mmol/L; Bicarbonate Venous 33.3 mmol/L (24.0-30.0); PCO2 Venous 75.5 mmHg (38-42); pH Blood Venous 7.31 (7.34-7.37)
--- NOTE | 2019-01-08 11:30 | NUR ---
UPDATE VBG RESULTS REPORTED TO DR MOONEY. PLAN FOR F/U VBG AT NOON. PT TO REMAIN ON BIPAP UNTIL RESULTS DETERMINE WHETHER PT WILL CONT TO WEAR BIPAP PER DR MOONEY. BIPAP PLACED ON PT. REQUIRED MOUSTACHE AND BARROS TO BE COMPLETELY SHAVED IN ORDER TO ACHIEVE GOOD FIT. WILL CONT TO MONITOR PT.
--- NOTE | 2019-01-08 11:49 | NUR ---
BLOOD SUGAR BLOOD SUGAR CHECKED, 48. DR MOONEY NOTIFIED, ORDER RECEIVED FOR 1AMP 50% DEXTROSE NOW. 1AMP 50% DEXTROSE GIVEN. PLAN TO RECHECK BLOOD SUGAR IN 1 HOUR. WILL CONT TO MONITOR PT.
[2019-01-08 16:06] LABS: Base Excess Venous 15.6 mmol/L; Bicarbonate Venous 37.1 mmol/L (24.0-30.0); PCO2 Venous 59.3 mmHg (38-42); PO2 Venous 40.2 mmHg (38-42); pH Blood Venous 7.44 (7.34-7.37)
[2019-01-08 16:19] LABS: Hematocrit 30.6 % (37.0-53.0); Hemoglobin 9.7 g/dL (13.5-17.5)
--- NOTE | 2019-01-08 18:15 | NUR ---
FAMILY PT'S SON AND POA, COUSIN, PRESENT AT BEDSIDE. UPDATE ON PT'S STATUS PROVIDED. PER PT'S POA PT INDICATED BY SHAKING HIS HEAD "NO" THAT HE DOES NOT WANT TO BE REINTUBATED. ERIK, PALLIATIVE CARE RN NOTIFIED THAT PT'S FAMILY PRESENT AND PLANS TO BE UP SHORTLY.
--- NOTE | 2019-01-08 18:38 | NUR ---
SHIFT SUMMARY PT RESTING IN BED ON LEFT SIDE, HOB ELEVATED 30 DEGREES. BIPAP ON PT. PT RESPONDS TO VERBAL STIMULI, MOUTHS WORDS OR SHAKES HEAD "NO"/NODS HEAD "YES" TO COMMUNICATE, OTHERWISE RESTS WITH EYES CLOSED. PT DENIES ANY PAIN OR DISCOMFORT. PT REMAINS VERY WEAK AND DECONDITIONED. ROM PERFORMED WITH PT DURING REPOSITIONING, PT REPOSITIONED Q2H PRN FOR PRESSURE RELIEF. BUE EDEMATOUS AND WEEPING, DRY FLOWS PLACED ON PILLOWS USED TO ELEVATE BUE. PICC TO NITISH, FLUSHES AND DRAWS EASILY. D5 RUNNING AT 75ML/HR PER ORDERS. BILATERAL CALF SCDs ON PT. PT WITH ATTENDS ON, NO STOOL THIS SHIFT. HANSEN CATHETER REMAINS PATENT, DRAINING YELLOW URINE. RHYTHM REMAINS AFIB WITH HR IN 80-100S. BP STABLE. SEE FLOWSHEET FOR VS. BLOOD SUGAR STABLE SINCE THIS AFTERNOON WHEN 1AMP OF DEXTROSE 50% WAS GIVEN FOR A BLOOD SUGAR OF 48. NGT REMAINS CLAMPED EXCEPT FOR MEDICATION ADMINISTRATION. BED IN LOWEST POSITION, UPPER SIDE RAILS RAISED. CALL LIGHT IN REACH WITH MUSIC ON. WILL CONT TO MONITOR PT.
--- NOTE | 2019-01-08 18:51 | NUR ---
PALLIATIVE CARE NURSE ROUNDS ERIK PALLIATIVE CARE RN AT BEDSIDE TALKING WITH PT'S SON AND COUSIN WHO ACTS PT'S POA. DISCUSSION IS REGARDING CHANGING PT ADVANCED DIRECTIVE TO DNR/DNI.
--- NOTE | 2019-01-08 19:18 | NUR ---
Pt son in from out of state to visit. Pt LAMONT who is his cousin and friend is manging his care. Pt was able to hear and participate in conversation with nodding yes and not to questions. Pt expressed to family when questioned he did not want to go back on ventilator. We discussed a mid level plan and an end of life care plan as he transitions through his disease process. pt and family want to stay the course. They are understanding and agree to limited treatment. He does not want CPR or vitilator support or dialysis. He wants basic medical care and would consider ICU if needed for medication and monitoring on bipap. He would consider a brief time of tube feed if it help but probably not. we discussed with patient day by day assessment with physician if continued treatment bringings improvment. if not they are interested in hospice as to avoid suffering from air hunger and pain. Son was in agreement. POLST completed and signed and reviewed with pt and family. POLST on chart for physician signature.
--- NOTE | 2019-01-08 19:30 | NUR ---
ASSUMED PT CARE; BEDSIDE REPORT GIVEN FAMILY AT BEDSIDE WITH PALLIATIVE CARE NURSE DISCUSSING POLST AND CODE STATUS. PT INVOLVED IN CONVERSATION. CURRENTLY ON THE BIPAP 01/04; FIO2 25% WITH OXYGEN SATURATIONS MAINTAINING LOW 90'S. PT IS ALERT AND RESPONDING ADEQUATELY. ALERT TO PERSON, PLACE, TIME, SITUATION, AND IS FOLLOWING DIRECTIONS. NG REMAINS CLAMPED. D5W INFUSING AT 75MLS/HR. HANSEN CATH REMAINS PATENT AND DRAINING TO GRAVITY.
--- NOTE | 2019-01-08 19:34 | NUR ---
SPOKE WITH DR. MOONEY REGARDING POLST RELAYED THAT FAMILY AND PT'S WISHSES ARE TO REMAIN DNR/DNI WITH LIMITED INTERVENTIONS. "MAY CONSIDER ICU CARE". PER PALLIATIVE CARE NURSE THIS IS IN REGARDS TO FAMILY MAY CONSIDER PRESSORS AND TUBE FEEDINGS IF PT STARTS TRENDING IN THE RIGHT DIRECTIONS AND MAKES IT OVER THIS "HUMP". INFORMED DR. MOONEY THAT THE SON HAS TO LEAVE BY TOMORROW FOR WORK AND WOULD LIKE TO SPEAK WITH HER BEFORE THEN; DR. MOONEY STATED THAT SHE WOULD BE IN AT HER NORMAL ROUNDING TIME AND WOULD SEE HIM THEN.
--- NOTE | 2019-01-09 03:45 | NUR ---
PT REQUESTED TO TAKE OFF BIPAP. PLACED ON 4L OXYGEN VIA NC. TOLERATING WELL; OXYGEN SATURATIONS MAINTAINING 96%
[2019-01-09 03:49] LABS: Hematocrit 29.9 % (37.0-53.0); Hemoglobin 9.5 g/dL (13.5-17.5); Mean Corpuscular HGB 32.3 pg (26.0-34.0); Mean Corpuscular HGB Conc 31.8 g/dL (31.5-36.5); Mean Corpuscular Volume 102 fL (80-100); Mean Platelet Volume 10.9 fL (9.1-12.4); Platelet Count 91 K/mm3 (150-400); RDW Standard Deviation 50.1 fL (35.1-46.3); Red Blood Cell Count 2.94 M/mm3 (4.30-5.90); White Blood Cell Count 8.93 K/mm3 (4.00-11.30)
[2019-01-09 04:04] LABS: Anion Gap 4 mmol/L (6-16); Blood Urea Nitrogen 20 mg/dL (8-24); Bun/Creatinine Ratio 76.3 (12.0-20.0); CO2, Blood 37 mmol/L (21-32); Calcium, Blood 7.4 mg/dL (8.5-10.1); Chloride, Blood 97 mmol/L (98-108); Creatinine, Blood 0.26 mg/dL (0.60-1.20); Glomerular Filtration Rate >60 (60-); Glucose, Blood 100 mg/dL (70-99); Potassium, Blood 4.8 mmol/L (3.5-5.5); Sodium, Blood 138 mmol/L (136-145)
--- NOTE | 2019-01-09 05:28 | NUR ---
END OF SHIFT SUMMARY PT REMAINS ALERT AND ORIENTED TO PERSON, PLACE, TIME, AND SITUATION. ABLE TO FOLLOW COMMANDS. BIPAP WORN MOST OF NIGHT WITH PRESSURES 16/4; FIO2 25%. PT REQUESTED BIPAP TO COME OFF AROUND 0345; PLACED ON 4L VIA NC; TOLERATED WELL WITH OXYGEN SATURATIONS MAINTAINING HIGH 90'S. LUNG SOUNDS REMAIN DIMINISHED T/O ALL LOBES. AUDIBLE GURGLING NOTED TO BACK OF THROAT; ATTEMPTED DEEP SUCTION WITH NO SUCCESS, WELL ENCOURAGED PT TO COUGH AND CLEAR THROAT. VERY WEAK COUGH; UNABLE TO CLEAR SECRETIONS. PT REMAINS VERY EDEMATOUS WITH BILATERAL ARMS ELEVATED ON PILLOWS. HANSEN CATH IS PATENT AND DRAINING ERWIN COLORED URINE, CLEAR. RECTAL TUBE REMAINS PATENT AND DRAINING MINIMAL AMOUNTS OF BROWN STOOL. WOUNDS REMAIN COVERED WITH MEPILEX; COCCYX WOUND IS VERY TENDER WHEN WM CARE IS PERFORMED. OVERALL PT DENIES ANY PAIN AND STATES HE IS COMFORTABLE.
--- NOTE | 2019-01-09 08:00 | NUR ---
MALE PATIENT OPENS HIS EYES WHEN NAME CALLED. VERY POOR COUGH EFFORT. NT SXED FOR VERY LARGE AMT OF YELLOW MUCOUS. COARSE T/O BUT IMPROVED AFTER SXED. ON 2L WITH SPO2 AT 96-98% STOOL SPEC SENT FOR DIARRHEA. RECTAL TUBE REMAINS IN PLACE. 2 MEPELEX DRESSINGS ON HIS BACK. DR HURST HERE. MOUTH CARE AND PAT HAS SEVERE THRUSH. NYSTQATIN ORDERED.
--- NOTE | 2019-01-09 10:00 | NUR ---
PAT NOW HAVING DROPS IN BP. DR HURST CALLED. ALBUMIN STARTED. BACK ON BIPAP 14/6 W O2 AT 30 %. STEVEN TAYLOR CALLED AND SHE WILL BE BRINGING IN THE SON.
[2019-01-09 10:38] LABS: PCO2 Arterial 75.5 mmHg (35-45); PO2 Arterial 91.8 mmHg (80-100); pH Blood Arterial 7.33 (7.35-7.45)
--- NOTE | 2019-01-09 12:45 | NUR ---
DR MOONEY HERE AND TALKED WITH PATS SON AND POA. PATIENT MADE A COMFORT CARE PAT.
--- NOTE | 2019-01-09 13:32 | NUR ---
PAT USING ACESSORY MUSCLES TO BREATH. MOUTH CLEANED AGAN. PAT MADE COMFORT CARE AFTER TALKING W DR MCRAE.
--- NOTE | 2019-01-09 16:54 | NUR ---
PAT TURNED TO HIS LEFT SIDE. EYES OPEN AT THE TURN BUT NO TRACKING OR AWARENESS NOTED.
--- NOTE | 2019-01-09 18:22 | NUR ---
PATIENT SUDDENLY AT 1725. HAILEY TAYLOR THE POA WAS NOTIFIED AND WILL REACH THE PAT'S SON WHO IS A LONG HA[employer] SQUIR[employer] MAN. JESUS ARGUELLO TRANSFER NOTIFIED AND WILL BE HERE SOON TO HEAD DOFFER Deja CONI.
--- NOTE | 2019-01-09 18:55 | NUR ---
[employer] HERE TO [employer] B[employer]. ROBERT CARDENAS WITH THE PATIENT
--- NOTE | 2019-01-09 19:12 | NUR ---
FINAL DISCHARGE: CALLED DONOR BANK TO CHECK IF PT MAY BE ABLE TO DONATE EYES/TISSUES. ALL INFO NEEDED GIVEN. DONOR BANK TO CALL BACK WITH RESULTS.
== END 2019-01-09 17:25 | DRG 208 ==
LOC: ER 11:13 → ICUW 13:30 → PCU 13:30 → ICUW 01-03 10:26
PROVIDERS: Emergency Medicine; Internal Medicine; Internal Medicine Critical Care Medicine; Internal Medicine Gastroenterology; Internal Medicine Pulmonary Disease; ADMIT Internal Medicine
PROC: 02HV33Z Insertion of Infusion Device into Superior Vena Cava, Percutaneous Approach (ICD-10-PCS; principal; 2019-01-03)
PROC: 30233N1 Transfusion of Nonautologous Red Blood Cells into Peripheral Vein, Percutaneous Approach (ICD-10-PCS; 2019-01-03)
PROC: 0W3P8ZZ Control Bleeding in Gastrointestinal Tract, Via Natural or Artificial Opening Endoscopic (ICD-10-PCS; 2019-01-04)
PROC: 5A1945Z Respiratory Ventilation, 24-96 Consecutive Hours (ICD-10-PCS; 2019-01-04)
PROC: 0BH17EZ Insertion of Endotracheal Airway into Trachea, Via Natural or Artificial Opening (ICD-10-PCS; 2019-01-04)
PROC: 30233N1 Transfusion of Nonautologous Red Blood Cells into Peripheral Vein, Percutaneous Approach (ICD-10-PCS; 2019-01-06)
PROC: 30233N1 Transfusion of Nonautologous Red Blood Cells into Peripheral Vein, Percutaneous Approach (ICD-10-PCS; 2019-01-08)
PROC: 3E033XZ Introduction of Vasopressor into Peripheral Vein, Percutaneous Approach (ICD-10-PCS; 2019-01-09)
DX: J96.21 Acute and chronic respiratory failure with hypoxia (principal); K26.4 Chronic or unspecified duodenal ulcer with hemorrhage; E43 Unspecified severe protein-calorie malnutrition; J44.1 Chronic obstructive pulmonary disease with (acute) exacerbation; J44.0 Chronic obstructive pulmonary disease with (acute) lower respiratory infection; G93.40 Encephalopathy, unspecified; Z68.1 Body mass index [BMI] 19.9 or less, adult; Z51.5 Encounter for palliative care; R33.9 Retention of urine, unspecified; I10 Essential (primary) hypertension; I95.9 Hypotension, unspecified; R57.8 Other shock; I48.91 Unspecified atrial fibrillation; R41.82 Altered mental status, unspecified; Z99.81 Dependence on supplemental oxygen; I48.0 Paroxysmal atrial fibrillation; Z79.01 Long term (current) use of anticoagulants; J20.9 Acute bronchitis, unspecified; R53.81 Other malaise; E78.5 Hyperlipidemia, unspecified; N40.1 Benign prostatic hyperplasia with lower urinary tract symptoms; K44.9 Diaphragmatic hernia without obstruction or gangrene; E83.39 Other disorders of phosphorus metabolism; R79.89 Other specified abnormal findings of blood chemistry; R73.9 Hyperglycemia, unspecified; Z66 Do not resuscitate
CPT/HCPCS: 31500; 31720; 36415; 36430; 36569; 36600; 71045; 76700; 80048; 80053; 80162; 82330; 82533; 82803; 82947; 83605; 83735; 83880; 84100; 84484; 85014; 85018; 85025; 85027; 86850; 86900; 86901; 86923; 87040; 87070; 87077; 87186; 87205; 87486; 87493; 87581; 87633; 87798; 87804; 93005; 93010; 93971; 94002; 94003; 94640; 94644; 94660; 94667; 94762; 96360; 99285-25; C1751; C9113; J0330; J1160; J2060; J2270; J2370; J2543; J2765; J2920; J2930; J3010; J3370; J7030; J7050; J7060; J7070; J7120; P9016; P9046